=== PATIENT | male | born 1945 | race African-American/Black ===

== ENCOUNTER 2017-03-20 21:38 | Inpatient (IN) | payer OTHER, MEDICARE ==
[~2017-03-20] VITALS: Ht 175.3 cm; Wt 52.6 kg
--- NOTE | 2017-03-20 00:50 | NUR ---
21:50. Pt arrived via transport and at 21:55 placed on Quinonez vent with the following settings of AC-14, Vt-550, PEEP+5, FIO2-40%. Pt trached with Ghada#8 DCT trach, which is in the place and secure. No respiratory distress noted. Airway care done, pt responded to physical stimuli. Resus. bag and back up trach at bedside. Vent and alarms checked and reset.
--- NOTE | 2017-03-20 00:53 | NUR ---
22:51. Pt went for CT scan with RT, RN and X-RAY tech at bedside on vent. 23:03. Pt back to ER 1-B. No distress noted.
--- NOTE | 2017-03-20 21:55 | NUR ---
PT BIB [facility]ANCE FROM [facility] WITH ABNORMAL LABS.PT TRACHED AND ON VENTILATOR.SPONTANEOUS EYE OPENING BUT NOTHING PURPOSEFUL.WILL PULL AWAY FROM PAIN. NO RESP DISTRESS NOTED OR REPORTED UPON ASSESSMENT... MD AT BEDSIDE...
[2017-03-20] MEDS ORDERED: CEFTRIAXONE 1 G in IV DEXTROSE 5% 50 ML IV ONE (22:00)
[2017-03-20] MEDS ORDERED: ACETAMINOPHEN 650 MG SUPP.RECT RC ONE (22:00)
[2017-03-20 22:03] LABS: *OCCULT BLOOD STOOL POSITIVE (NEGATIVE)
[2017-03-20] MEDS ORDERED: CEFTRIAXONE 1 G VIAL ONE (22:21)
[2017-03-20] MEDS ORDERED: ACETAMINOPHEN 325 MG SUPP ONE (22:22)
[2017-03-20] MEDS ORDERED: ALBU2.5V38 IH (22:23)
[2017-03-20] MEDS ORDERED: ALBU2.5V38 NEB (22:23)
[2017-03-20] MEDS ORDERED: EPOE1VIA6 SQ (22:23)
[2017-03-20] MEDS ORDERED: ACET160S GT (22:23)
[2017-03-20] MEDS ORDERED: ASPI81TA31 GT (22:23)
[2017-03-20] MEDS ORDERED: IPRA0.2S6 NEB ×2 (22:23)
[2017-03-20] MEDS ORDERED: BLOO-360 IN (22:23)
[2017-03-20] MEDS ORDERED: HYDR100T27 GT (22:23)
[2017-03-20] MEDS ORDERED: INSU100V10 SQ (22:23)
[2017-03-20] MEDS ORDERED: LABE200T GT (22:23)
[2017-03-20] MEDS ORDERED: ATEN25TA PO (22:23)
[2017-03-20] MEDS ORDERED: HEPA500014 IJ (22:23)
[2017-03-20] MEDS ORDERED: COLL30OI TOP (22:23)
[2017-03-20 22:26] LABS: ABG BASE EXCESS 0.7 mmol/L; ABG PCO2 32.9 mmHg (35.0-45.0); ABG PH 7.481 (7.350-7.450); ABG PO2 147.5 mmHg (75.0-100.0); ABG SITE RIGHT RADIAL; ABG TOTAL HEMOGLOBIN 8.1 G/dL (13.5-18.0); COHb 1.4 % (0.5-1.5); MetHb 0.5 % (0.0-1.5); O2Hb 97.3 % (94.0-97.0); VENT MODE VENT - A/C; VT, ABG 550 mL
[2017-03-20 22:30] LABS: BASOPHILS # (AUTO) 0.1 K/uL (0.0-8.0); BASOPHILS % (AUTO) 0.4 % (0.0-2.0); EOSINOPHILS # (AUTO) 0.8 K/uL (0.0-0.7); EOSINOPHILS % (AUTO) 4.3 % (0.0-7.0); HEMOGLOBIN 7.4 G/DL (14.0-18.0); LYMPHOCYTES # (AUTO) 3.5 K/UL (0.8-4.8); LYMPHOCYTES % (AUTO) 19.3 % (20.5-51.5); MEAN CORPUSCULAR HEMOGLOBIN 25.8 UUG (27.0-31.0); MEAN CORPUSCULAR HGB CONC 32 g/dL (32.0-37.0); MONOCYTES # (AUTO) 1.9 K/UL (0.1-1.30); MONOCYTES % (AUTO) 10.6 % (0.0-11.0); NEUTROPHILS # (AUTO) 11.8 K/UL (1.8-8.9); NEUTROPHILS % (AUTO) 65.4 % (38.5-71.5); RED BLOOD CELL COUNT(AUTO) 2.87 MIL/UL (4.7-6.1); WHITE BLOOD COUNT (AUTO) 18.1 K/UL (4.0-11.2)
[2017-03-20 22:31] LABS: POTASSIUM 4.9 mmol/L (3.5-5.1)
[2017-03-20 22:37] LABS: CREATININE 2.7 mg/dL (0.6-1.3)
[2017-03-20 22:44] LABS: BILIRUBIN,DIRECT 0.1 mg/dL (0.0-0.2); BILIRUBIN,TOTAL 0.3 mg/dL (0.2-1.0); TOTAL PROTEIN, SERUM 7.8 g/dL (6.4-8.2)
--- NOTE | 2017-03-20 22:44 | NUR ---
PER ERMD, OK TO INSERT IV IN FOOT, PT IS DIABETIC...
[2017-03-20 22:53] LABS: HEMATOCRIT 23.2 % (40-50); PLATELET COUNT (AUTO) 1004 K/UL (150-450)
[2017-03-20 22:57] LABS: *BILIRUBIN,URIN NEGATIVE (NEGATIVE); *BLOOD, URINE NEGATIVE (NEGATIVE); *COLOR,URINE YELLOW (YELLOW); *KETONES,URINE NEGATIVE (NEGATIVE); *UROBILINOGEN,URINE 0.2 E.U./dl (NORMAL); LEUKOCYTE ESTERASE ,URINE NEGATIVE (NEGATIVE); NITRITE, URINE NEGATIVE (NEGATIVE); UGLUCOSE NEGATIVE (NEGATIVE)
[2017-03-20 23:04] LABS: *CLARITY,URINE HAZY (CLEAR); *PROTEIN,URINE 3+ (NEGATIVE)
[2017-03-20 23:05] LABS: BACTERIA,URINE NONE SEEN /HPF (NONE SEEN); RBC,URINE 0-3 /HPF (0-3); SQUAMOUS EPITHELIAL CELL,UR MODERATE /HPF (NONE SEEN); WBC,URINE 0-3 /HPF (0-3)
--- NOTE | 2017-03-20 23:10 | NUR ---
Due to ABG result Dr Rowe lower RR to 12bpm.
[2017-03-20 23:40] LABS: BAND % (MANUAL) 4 % (0-10); EOSINOPHILS % (MANUAL) 4 % (0-8); LYMPHOCYTES % (MANUAL) 20 % (20-40); MONOCYTES % (MANUAL) 10 % (2-10); NEUTROPHILS % (MANUAL) 62 % (42-75)
--- NOTE | 2017-03-20 23:42 | NUR ---
Call placed to [facility] Nephrolog, Dr. Proctor will be paged.
[2017-03-21] VITALS (26 sets, daily range): BP systolic 91–151; BP diastolic 55–84
--- NOTE | 2017-03-21 01:15 | NUR ---
Pt transferred to CCU-[address] Rowe. No distress noted.
--- NOTE | 2017-03-21 01:16 | NUR ---
Pt. admitted to [facility] , under care of Dr. GAFFNEY, Belongs List completed, transferred via gurney with ERMD and RT at side...
--- NOTE | 2017-03-21 01:30 | NUR ---
Admitted to CCU-5 per jovanna, [facility] status under services of Dr. Proctor. Dx: Liver Mass, SIRS/possible sepsis. In no apparent acute distress. Trach Shiley DCT 8 intact, placed on vent. with prescribed settings. Copious oral and large trach secretions noted with suctioning. Routine CCU/[facility] admission care rendered. Please see admission assessment and profile. HOB up per VAP protocol. Placed on contact isolation pending result of CDiff stool sent in ER.
[2017-03-21] MEDS ORDERED: NORMAL SALINE FLUSH 10 ML DISP.SYRIN IV PRN (03:15)
[2017-03-21 05:20] LABS: BASOPHILS # (AUTO) 0.1 K/uL (0.0-8.0); BASOPHILS % (AUTO) 0.3 % (0.0-2.0); EOSINOPHILS # (AUTO) 0.7 K/uL (0.0-0.7); LYMPHOCYTES # (AUTO) 3.3 K/UL (0.8-4.8); LYMPHOCYTES % (AUTO) 19.6 % (20.5-51.5); MEAN CORPUSCULAR HEMOGLOBIN 25.7 UUG (27.0-31.0); MEAN CORPUSCULAR HGB CONC 32 g/dL (32.0-37.0); MEAN CORPUSCULAR VOLUME 81.6 FL (82.0-92.0); MONOCYTES # (AUTO) 2.1 K/UL (0.1-1.30); MONOCYTES % (AUTO) 12.5 % (0.0-11.0); NEUTROPHILS # (AUTO) 10.8 K/UL (1.8-8.9); NEUTROPHILS % (AUTO) 63.6 % (38.5-71.5); PLATELET COUNT (AUTO) 971 K/UL (150-450); RED BLOOD CELL COUNT(AUTO) 2.67 MIL/UL (4.7-6.1)
[2017-03-21 05:43] LABS: HEMATOCRIT 21.8 % (40-50); HEMOGLOBIN 6.9 G/DL (14.0-18.0)
[2017-03-21 05:45] LABS: PHOSPHOROUS 4.4 mg/dL (2.5-4.9); POTASSIUM 4.7 mmol/L (3.5-5.1)
[2017-03-21] MEDS ORDERED: BLOOD SUGAR DIAGNOSTIC 1 EACH STRIP VI SCH ×3 (06:00→12:00)
[2017-03-21] MEDS: IPRATROPIUM BROMIDE 0.5 MG/2.5 ML NEBU NEB SCH ×4 (06:00→19:11)
[2017-03-21] MEDS ORDERED: ALBUTEROL SULFATE 2.5 MG/3 ML NEBU NEB SCH (06:00)
--- NOTE | 2017-03-21 06:00 | NUR ---
Needed frequent suctioning, more orally. Tongue large, protruding with tendency to bleed. Pt incontinent of liquid stools, kept clean/comfortable. Turned/positioned q 2hr and PRN. Await first step mattress. Please see CCU flowsheet for trends and clinical data.
[2017-03-21 06:06] LABS: CREATININE 3.2 mg/dL (0.6-1.3)
[2017-03-21] MEDS: NORMAL SALINE FLUSH 10 ML DISP.SYRIN IV SCH ×2 (06:35→14:40)
[2017-03-21] MEDS: METRONIDAZOLE 500 MG/NS 100ML 500 MG in PREMIXED 1 EACH IV SCH ×2 (06:44→14:39)
--- NOTE | 2017-03-21 07:30 | NUR ---
RECIEVED PT LYING IN BED, EYES OPENS SPONTANEOUSLY BUT DOES NOT FOLLOW COMMANDS. CHRONIS TRACH8, VENT SETTING IS AC12, VT550, PEEP5, DWE614%. LOT OF ORAL SECRETIONS AND PLACED ON ORAL AIRWAY TO PROTECT HIS TONGUE FROM HIS BITING. AFEBRILE.
--- NOTE | 2017-03-21 08:30 | NUR ---
SEEN AND EXAMINED BY DR GLASS WITH NEW ORDERS.
[2017-03-21] MEDS ORDERED: IPRATROPIUM BROMIDE 0.5 MG/2.5 ML NEBU NEB PRN (08:45)
[2017-03-21] MEDS: INSULIN DETEMIR 300 UNIT/3 ML CARTRIDGE SQ SCH ×2 (08:45→18:00)
[2017-03-21] MEDS ORDERED: ALBUTEROL SULFATE 2.5 MG/3 ML NEBU NEB PRN (08:45)
[2017-03-21] MEDS ORDERED: COLLAGENASE OINT 30 GM TUBE TOP PRN (08:45)
[2017-03-21] MEDS: ALBUTEROL SULFATE 2.5 MG/3 ML NEBU NEB SCH ×3 (08:50→19:12)
[2017-03-21] MEDS ORDERED: ASPIRIN 81 MG TAB.CHEW GT SCH (09:00)
[2017-03-21] MEDS: ATENOLOL 25 MG TABLET PO SCH ×2 (09:52→23:59)
[2017-03-21] MEDS: hydrALAZINE HCL 50 MG TABLET GT SCH ×2 (09:53→14:39)
[2017-03-21] MEDS: LABETALOL HCL 200 MG TABLET GT SCH (10:00)
--- NOTE | 2017-03-21 10:00 | NUR ---
PT HAS DIARRHEA WITH BLACK TARRY STOOLS LARGE AMOUNT. FLEXISEAL INSERTED ORDERED.
--- NOTE | 2017-03-21 11:00 | NUR ---
GT INTACT. PT NPO.
[2017-03-21 12:10] LABS: BAND % (MANUAL) 3 % (0-10); EOSINOPHILS % (MANUAL) 4 % (0-8); LYMPHOCYTES % (MANUAL) 19 % (20-40); METAMYELOCYTES % 1 % (0-1); MONOCYTES % (MANUAL) 11 % (2-10); NEUTROPHILS % (MANUAL) 62 % (42-75)
[2017-03-21] MEDS ORDERED: DEXTROSE 50% 50 ML DISP.SYRIN IV PRN (12:30)
[2017-03-21] MEDS ORDERED: THERAHONEY GEL 1.5 OZ TUBE TOP PRN (12:30)
[2017-03-21] MEDS: BLOOD SUGAR DIAGNOSTIC 1 EACH STRIP VI SCH ×2 (12:59→18:17)
[2017-03-21] MEDS: PANTOPRAZOLE SODIUM 40 MG VIAL IV SCH ×2 (13:00→23:58)
[2017-03-21] MEDS: INSULIN REGULAR, HUMAN 300 UNIT/3 ML VIAL SQ PRN (13:06)
[2017-03-21] MEDS ORDERED: ALBUTEROL SULFATE 2.5 MG/3 ML NEBU IH SCH (13:30)
[2017-03-21] MEDS ORDERED: IPRATROPIUM BROMIDE 0.5 MG/2.5 ML NEBU NEB SCH (13:30)
--- NOTE | 2017-03-21 14:00 | NUR ---
FIRST UNIT OF PRBC STARTED WITHOUT ANY REACTION ORDERED FOR LOW H&H VIA THE RIGHT LEG G20. INFUSING WELL. AFEBRILE.
--- NOTE | 2017-03-21 14:43 | NUR ---
PATIENT RECEIVED ON AC 12, VT 550, +5, 40% FIO2. NO SIGNS OR SYMPTOMS OF RESPIRATORY DISTRESS NOTED AT THIS TIME. HE IS TRACHED WITH A SHILEY 8 DCT, MEASUREMENT AND SENSING TECHNICIAN USED FOR CUFF ASSESSMENT. OLD WOUND ON TONGUE NOTED. BITE BLOCK IN PLACE TO PREVENT FURTHER INJURY. SUCTIONED SMALL AMOUNTS OF PALE YELLOW THICK SECRETIONS. NO SOB. TRACH AND ORAL CARE RENDERED WITHOUT COMPLICATIONS. INLINE TREATMENTS ADMINISTERED VIA HHN, NO ADVERSE REACTIONS NOTED. ALARMS ARE ON AND AUDIBLE. AMBU BAG AND SPARE TRACH ARE AT BEDSIDE.
--- NOTE | 2017-03-21 17:30 | NUR ---
2ND UNIT OF PRBC IS INFUSING. VSS.
--- NOTE | 2017-03-21 18:00 | NUR ---
PM CARE RENDERED. CONDITION IS UNCHANGED.
--- NOTE | 2017-03-21 19:10 | NUR ---
Received report from GEO Ellis
--- NOTE | 2017-03-21 19:20 | NUR ---
Patient awake, non responsive, do not follow command. Not in distress. No s/s of pain/discomforts noted. HOB, on mechanical vent tolerating vent setting well, saturating 100%. GT intact and patent, clamped. Flexi-seal intact/patent with black stool in small amount sticked on the tubing. Irrigated with water for patency. Turned and repositioned for comfort. Continue care as planned.
--- NOTE | 2017-03-21 19:59 | NUR ---
Blood transfusion completed without s/s of adverse reaction noted. VS taken and recorded as follows: 130/67, 70,14, 98.7
--- NOTE | 2017-03-21 20:00 | NUR ---
Patient moved to CCU 1 for HD accomodation.
--- NOTE | 2017-03-21 23:00 | NUR ---
Ravinder called Dr. Correa exchange [phone] Re: CT abdomen with contrast. Anticipating MD to call back
--- NOTE | 2017-03-21 23:06 | NUR ---
Dr Correa called back. Ravinder informed that HD is needed per HD nurse after CT abdomen with contrast is done. MD agreed and procedure will be reschedule for tomorrow. HD nurse aware. Will notify PMD in AM for HD order.
--- NOTE | 2017-03-21 23:35 | NUR ---
HD completed with no output reported. Will do HD again in AM after CT abdomen with contrast as ordered.
[2017-03-22] VITALS (23 sets, daily range): BP systolic 98–158; BP diastolic 58–82
[2017-03-22] MEDS: hydrALAZINE HCL 50 MG TABLET GT SCH ×4 (00:01→21:45)
[2017-03-22] MEDS: NORMAL SALINE FLUSH 10 ML DISP.SYRIN IV SCH ×4 (00:02→22:31)
[2017-03-22] MEDS: CEFTRIAXONE 1 G in IV DEXTROSE 5% 50 ML IV SCH ×2 (00:02→21:45)
[2017-03-22] MEDS: LABETALOL HCL 200 MG TABLET GT SCH ×3 (00:08→20:28)
[2017-03-22] MEDS: BLOOD SUGAR DIAGNOSTIC 1 EACH STRIP VI SCH ×5 (00:21→23:47)
[2017-03-22] MEDS: INSULIN REGULAR, HUMAN 300 UNIT/3 ML VIAL SQ PRN ×4 (00:22→23:54)
[2017-03-22] MEDS: IPRATROPIUM BROMIDE 0.5 MG/2.5 ML NEBU NEB SCH ×4 (00:53→19:02)
[2017-03-22] MEDS: ALBUTEROL SULFATE 2.5 MG/3 ML NEBU NEB SCH ×4 (00:53→19:02)
[2017-03-22] MEDS: METRONIDAZOLE 500 MG/NS 100ML 500 MG in PREMIXED 1 EACH IV SCH ×4 (00:57→22:30)
--- NOTE | 2017-03-22 00:57 | NUR ---
PT ON CONT POWELL VENT WITH SHILEY # [address] AND SECURED, WITH SAME CURRENT VENT SETTINGS, A/C 12, VT 550ML, PEEP 5, 40% , PT DOES ASSIST AT TIMES, SUCTION ALOT OF SECRETIONS FROM ORAL CAVITY, ORAL AIRWAY IN PLACE BUT DOES FALL OUT AT TIMES, SUCTION MOUTH WITH ROSA ISELA DE LA ROSA, WHITISH AND PALE YELL TINGE FROM TRACH, WITH GOOD COUGH EFFORT, CHECK CUFF, CHANGE HME, NEB INLINE WITH Q6 HOURS WITH ALBUTEROL/ ATROVENT ROSA ISELA JACOBS, ALL ALARMS OK; AMBU BAG AT BEDSIDE, PT DOES NOT RESPOND TO VERBAL COMMANDS ; NO VENT CHANGES MADE AT THIS TIME.Shira GRUBBS RCP Addendum: 03/22/17 at 0101 by MAN GRUBBS RT Amended: Links added.
--- NOTE | 2017-03-22 04:15 | NUR ---
Complete bed bath given. Trach, GT and wound care done. Pt tolerated procedure well. No complaint presented.
[2017-03-22 04:57] LABS: BASOPHILS % (AUTO) 0.2 % (0.0-2.0); EOSINOPHILS # (AUTO) 0.7 K/uL (0.0-0.7); EOSINOPHILS % (AUTO) 4.5 % (0.0-7.0); HEMATOCRIT 28.6 % (40-50); HEMOGLOBIN 9.2 G/DL (14.0-18.0); LYMPHOCYTES # (AUTO) 2.4 K/UL (0.8-4.8); LYMPHOCYTES % (AUTO) 16.4 % (20.5-51.5); MEAN CORPUSCULAR HEMOGLOBIN 26.5 UUG (27.0-31.0); MEAN CORPUSCULAR HGB CONC 32 g/dL (32.0-37.0); MEAN CORPUSCULAR VOLUME 82.1 FL (82.0-92.0); MONOCYTES # (AUTO) 1.9 K/UL (0.1-1.30); NEUTROPHILS # (AUTO) 9.9 K/UL (1.8-8.9); NEUTROPHILS % (AUTO) 65.9 % (38.5-71.5); PLATELET COUNT (AUTO) 937 K/UL (150-450); RED BLOOD CELL COUNT(AUTO) 3.48 MIL/UL (4.7-6.1); WHITE BLOOD COUNT (AUTO) 14.9 K/UL (4.0-11.2)
[2017-03-22 05:09] LABS: BILIRUBIN,TOTAL 0.3 mg/dL (0.2-1.0); MAGNESIUM 2.1 mg/dL (1.8-2.4); PHOSPHOROUS 4.6 mg/dL (2.5-4.9); POTASSIUM 4.2 mmol/L (3.5-5.1); TOTAL PROTEIN, SERUM 7.4 g/dL (6.4-8.2)
[2017-03-22 05:28] LABS: CREATININE 3.2 mg/dL (0.6-1.3)
--- NOTE | 2017-03-22 07:30 | NUR ---
RECIEVED PT LYING IN BED, HOB UP 35DEGREE. NO APPARENT DISTRESS, NON VERBAL, CHRONIC TRACHE SHILEY8 INTACT. VENT SETTING AC12,VT550,PEEP5,FIO2-40%. LARGE AMOUNT OF ORAL SECRETIONS AND ORAL AIRWAY IS PRESENT TO PREVENT HIM FROM BITING HIS TONGUE.
--- NOTE | 2017-03-22 07:55 | NUR ---
PT RECEIVED ON CMV WITH TRACH SECURED AND INTACT. AIRWAY PATENT. PT COMFORTABLE TOLERATING CURRENT VENT SETTINGS FINE WITH NO DISTRESS. VENT ALARM SET AND AUDIBLE.VENT PLUGGED INTO RED OUTLET.
[2017-03-22] MEDS: INSULIN DETEMIR 300 UNIT/3 ML CARTRIDGE SQ SCH (08:00)
[2017-03-22] MEDS: PANTOPRAZOLE SODIUM 40 MG VIAL IV SCH ×2 (08:59→20:28)
[2017-03-22] MEDS: ATENOLOL 25 MG TABLET PO SCH ×2 (09:00→20:28)
--- NOTE | 2017-03-22 11:00 | NUR ---
SEEN AND EXAMINED BY DR GLASS WITH NEW ORDERS.
--- NOTE | 2017-03-22 11:00 | NUR ---
MIDLINE IV INSERTON DONE AT THE BEDSIDE BY SAIDA GUARDADO G18 ON THE FRANKLIN PATENT AND INTACT. RONNIE
[2017-03-22] MEDS: EPOETIN ALFA 10,000 UNITS/ML VIAL SQ PRN (11:22)
--- NOTE | 2017-03-22 13:00 | NUR ---
PT TO CT VIA BED FOR CT ABDOMEN WITH CONTRAST. CONSENTED BY DR GLASS FOR INCAPACITATED PT WITHOUT ANY RELATIVES.
[2017-03-22] MEDS ORDERED: IV NORMAL SALINE 250 ML BAG ONE (13:18)
[2017-03-22] MEDS ORDERED: IOHEXOL 300MG/ML 100 ML INFUS..BTL ONE (13:18)
--- NOTE | 2017-03-22 14:30 | NUR ---
HEMODIALYSIS AT THE BEDSIDE ORDERED. TOLERATED WELL. VSS STABLE.
--- NOTE | 2017-03-22 18:00 | NUR ---
RECTAL TUBE WAS OUT AND DID NOT REINSERT IT BACK.
--- NOTE | 2017-03-22 18:00 | NUR ---
PM CARE AND TRACH CARE DONE. CONDITION IS UNCHANGED.
--- NOTE | 2017-03-22 19:30 | NUR ---
Report received. Patient with trache to vent, settings as follows: AC=12, FIO2=40%, LP=960 ml and PEEP=5. Opens eyes spontaneously. Doesn't follow any commands. Assessment completed. Addendum: 03/22/17 at 2332 by MARTI ALTAMIRANO RN Amended: Links added. Addendum: 03/22/17 at 2332 by MARTI ALTAMIRANO RN Amended: Links added.
--- NOTE | 2017-03-22 21:00 | NUR ---
Seen by Usman Banks new orders. Addendum: 03/22/17 at 2342 by MARTI ALTAMIRANO RN Amended: Links added. Addendum: 03/23/17 at 0001 by MARTI ALTAMIRANO RN Amended: Links added.
--- NOTE | 2017-03-22 21:04 | NUR ---
PATIENT RECEIVED TRACHED ON CMV WITH THE FOLLOWING SETTINGS THAT ARE CHARTED ON THE MECHANICAL VENT NOTES. BITE BLOCK IS IN PLACE. SX'D SMALL AMOUNTS OF THICK YELLOW SECRETIONS. HME CHANGED. INLINE HHN TX ADMINISTERED PER MD ORDERS AND TOLERATED WELL WITH NO ADVERSE REACTIONS NOTED. ALARMS ARE ON AND AUDIBLE. BACK UP TRACH AND BMV IS BY BEDSIDE. VENT IS PLUGGED IN RED OUTLET. VENT ALARMS ARE ON AND AUDIBLE. PT IS TOLERATING CURRENT VENT SETTINGS WELL WITH NO SOB NOTED AT THIS TIME. WILL CONTINUE TO MONITOR.
[2017-03-23] VITALS (23 sets, daily range): BP systolic 107–156; BP diastolic 58–90
--- NOTE | 2017-03-23 00:30 | NUR ---
Suctioned via trache; with thick pale yellowish secretions. Specimen sent to lab for C/S. Addendum: 03/23/17 at 0654 by MARTI ALTAMIRANO RN Amended: Links added.
[2017-03-23] MEDS: ALBUTEROL SULFATE 2.5 MG/3 ML NEBU NEB SCH ×4 (01:03→19:15)
[2017-03-23] MEDS: IPRATROPIUM BROMIDE 0.5 MG/2.5 ML NEBU NEB SCH ×4 (01:04→19:15)
[2017-03-23 05:21] LABS: BILIRUBIN,TOTAL 0.5 mg/dL (0.2-1.0); MAGNESIUM 1.9 mg/dL (1.8-2.4); PHOSPHOROUS 5.3 mg/dL (2.5-4.9); POTASSIUM 4.2 mmol/L (3.5-5.1); TOTAL PROTEIN, SERUM 6.9 g/dL (6.4-8.2)
[2017-03-23 05:25] LABS: BASOPHILS % (AUTO) 0.1 % (0.0-2.0); EOSINOPHILS # (AUTO) 0.6 K/uL (0.0-0.7); EOSINOPHILS % (AUTO) 3.5 % (0.0-7.0); HEMATOCRIT 26.7 % (40-50); HEMOGLOBIN 8.9 G/DL (14.0-18.0); LYMPHOCYTES # (AUTO) 2.6 K/UL (0.8-4.8); LYMPHOCYTES % (AUTO) 15.9 % (20.5-51.5); MEAN CORPUSCULAR HEMOGLOBIN 27.3 UUG (27.0-31.0); MEAN CORPUSCULAR HGB CONC 33 g/dL (32.0-37.0); MEAN CORPUSCULAR VOLUME 81.7 FL (82.0-92.0); MONOCYTES # (AUTO) 2.1 K/UL (0.1-1.30); MONOCYTES % (AUTO) 13.3 % (0.0-11.0); NEUTROPHILS # (AUTO) 10.8 K/UL (1.8-8.9); NEUTROPHILS % (AUTO) 67.2 % (38.5-71.5); PLATELET COUNT (AUTO) 918 K/UL (150-450); RED BLOOD CELL COUNT(AUTO) 3.27 MIL/UL (4.7-6.1); WHITE BLOOD COUNT (AUTO) 16.1 K/UL (4.0-11.2)
[2017-03-23 05:30] LABS: CREATININE 3.7 mg/dL (0.6-1.3)
[2017-03-23] MEDS: BLOOD SUGAR DIAGNOSTIC 1 EACH STRIP VI SCH ×4 (05:32→23:20)
[2017-03-23] MEDS: METRONIDAZOLE 500 MG/NS 100ML 500 MG in PREMIXED 1 EACH IV SCH ×3 (05:33→22:06)
[2017-03-23] MEDS: hydrALAZINE HCL 50 MG TABLET GT SCH ×3 (05:33→22:06)
[2017-03-23] MEDS: NORMAL SALINE FLUSH 10 ML DISP.SYRIN IV SCH ×3 (05:33→22:06)
[2017-03-23 05:40] LABS: BAND % (MANUAL) 2 % (0-10); EOSINOPHILS % (MANUAL) 3 % (0-8); LYMPHOCYTES % (MANUAL) 19 % (20-40); MONOCYTES % (MANUAL) 22 % (2-10); NEUTROPHILS % (MANUAL) 54 % (42-75)
--- NOTE | 2017-03-23 06:00 | NUR ---
Requires frequent suctioning from trache, mouth and nasopharangeal. With good cough reflex. VS stable.
[2017-03-23] MEDS: LABETALOL HCL 200 MG TABLET GT SCH ×2 (08:06→21:01)
[2017-03-23] MEDS: PANTOPRAZOLE SODIUM 40 MG VIAL IV SCH ×2 (08:06→21:00)
[2017-03-23] MEDS: ATENOLOL 25 MG TABLET PO SCH ×2 (08:06→21:00)
[2017-03-23] MEDS: Z GUARD REMEDY PASTE 57 GM TUBE TOP SCH ×2 (08:07→21:01)
--- NOTE | 2017-03-23 10:18 | NUR ---
Dr. High here to see pt. Full report given. New orders received.
[2017-03-23] MEDS: INSULIN REGULAR, HUMAN 300 UNIT/3 ML VIAL SQ PRN ×3 (11:49→23:21)
--- NOTE | 2017-03-23 12:00 | NUR ---
Dr. Lentz here to see pt. Full report given. New orders received.
[2017-03-23] MEDS: IV D5/ 0.9% NACL 1,000 ML IV PRN (12:08)
[2017-03-23] MEDS ORDERED: IOHEXOL 300MG/ML 100 ML INFUS..BTL ONE (14:22)
[2017-03-23] MEDS ORDERED: IV NORMAL SALINE 250 ML IV ONE (14:22)
--- NOTE | 2017-03-23 19:18 | NUR ---
Pt rec'd on Quinonez settings AC 12, VT 550, PEEP +5 and FIO2-40%. No resp. distress noted. Shiley 8 is patent and secure; B/U Shiley 8 and BVM at bedside. Pt to be monitored throughout the shift, PRN SX and adm'd resp neb txs per MD orders. Quinonez alarm parameters have been checked and remain audible at this time,.
--- NOTE | 2017-03-23 19:30 | NUR ---
Report received. Patient with trache to mechanical ventilator with settings: AC=12, FIO2=40%, IP=710hm and PEEP=5. Sat above 96%. Opens eyes spontaneously. Grimaces to pain but doesn't follow any commands. Addendum: 03/23/17 at 2304 by MARTI ALTAMIRANO RN Amended: Links added. Addendum: 03/23/17 at 2306 by MARTI ALTAMIRANO RN Amended: Links added.
[2017-03-23] MEDS: CEFTRIAXONE 1 G in IV DEXTROSE 5% 50 ML IV SCH (21:48)
[2017-03-24] VITALS (24 sets, daily range): BP systolic 110–156; BP diastolic 59–86
[2017-03-24] MEDS: IPRATROPIUM BROMIDE 0.5 MG/2.5 ML NEBU NEB SCH ×4 (00:37→19:55)
[2017-03-24] MEDS: ALBUTEROL SULFATE 2.5 MG/3 ML NEBU NEB SCH ×4 (00:37→19:55)
[2017-03-24] MEDS: IV D5/ 0.9% NACL 1,000 ML IV PRN ×2 (02:11→15:55)
[2017-03-24] MEDS: Z GUARD REMEDY PASTE 57 GM TUBE TOP PRN ×2 (02:14→05:15)
--- NOTE | 2017-03-24 05:05 | NUR ---
Pt remains on Quinonez with no changes made to the ventilator settings. No resp. distress noted throughout the shift. Shiley 8 remains patent and secure; B/U Shiley 8 and BVM at bedside. Pt routinely sx'd and appeared to tolerate resp neb txs and vent settings well. Quinonez alarm parameters have been checked and remain audible.
[2017-03-24 05:13] LABS: MAGNESIUM 2.1 mg/dL (1.8-2.4); PHOSPHOROUS 6.6 mg/dL (2.5-4.9); POTASSIUM 3.9 mmol/L (3.5-5.1)
[2017-03-24 05:15] LABS: BASOPHILS % (AUTO) 0.3 % (0.0-2.0); EOSINOPHILS # (AUTO) 0.5 K/uL (0.0-0.7); EOSINOPHILS % (AUTO) 3.3 % (0.0-7.0); HEMATOCRIT 26.3 % (40-50); HEMOGLOBIN 8.8 G/DL (14.0-18.0); LYMPHOCYTES # (AUTO) 2.3 K/UL (0.8-4.8); LYMPHOCYTES % (AUTO) 14.2 % (20.5-51.5); MEAN CORPUSCULAR HEMOGLOBIN 27.7 UUG (27.0-31.0); MEAN CORPUSCULAR HGB CONC 34 g/dL (32.0-37.0); MEAN CORPUSCULAR VOLUME 82.8 FL (82.0-92.0); MONOCYTES # (AUTO) 2.1 K/UL (0.1-1.30); MONOCYTES % (AUTO) 12.9 % (0.0-11.0); NEUTROPHILS # (AUTO) 11.5 K/UL (1.8-8.9); NEUTROPHILS % (AUTO) 69.3 % (38.5-71.5); PLATELET COUNT (AUTO) 914 K/UL (150-450); RED BLOOD CELL COUNT(AUTO) 3.17 MIL/UL (4.7-6.1); WHITE BLOOD COUNT (AUTO) 16.4 K/UL (4.0-11.2)
[2017-03-24] MEDS: METRONIDAZOLE 500 MG/NS 100ML 500 MG in PREMIXED 1 EACH IV SCH ×3 (05:15→21:51)
[2017-03-24] MEDS: NORMAL SALINE FLUSH 10 ML DISP.SYRIN IV SCH ×3 (05:15→21:51)
[2017-03-24] MEDS: BLOOD SUGAR DIAGNOSTIC 1 EACH STRIP VI SCH ×3 (05:16→17:28)
[2017-03-24 05:22] LABS: CREATININE 4.9 mg/dL (0.6-1.3)
[2017-03-24 05:38] LABS: BAND % (MANUAL) 2 % (0-10); EOSINOPHILS % (MANUAL) 1 % (0-8); LYMPHOCYTES % (MANUAL) 16 % (20-40); MONOCYTES % (MANUAL) 12 % (2-10); NEUTROPHILS % (MANUAL) 69 % (42-75)
[2017-03-24] MEDS: hydrALAZINE HCL 50 MG TABLET GT SCH ×3 (05:39→21:51)
[2017-03-24] MEDS: INSULIN REGULAR, HUMAN 300 UNIT/3 ML VIAL SQ PRN ×3 (05:41→17:34)
--- NOTE | 2017-03-24 06:00 | NUR ---
Condition unchanged. VS stable. Addendum: 03/24/17 at 0722 by MARTI ALTAMIRANO RN Amended: Links added.
--- NOTE | 2017-03-24 07:45 | NUR ---
RECEIVED PT ON CONTINUOUS VENT AC12 VT 550 PEEP 5 FIO2 40%. TRACH IN PLACE ABD SECURED. IN LINE TX GIVEN ORDERED. SUCTION LAVAGE PRN. ORAL CARE DONE. BACK UP TRACH AND AMBU BAG AT BEDSIDE. VENT CHECKED, ALARMS WORKING WELL AND AUDIBLE. NO DISTRESS NOTED AT THIS TIME. WILL CONTINUE TO MONITOR.
--- NOTE | 2017-03-24 08:00 | NUR ---
Dr. Lentz here to see pt. Full report given. New orders received.
--- NOTE | 2017-03-24 08:00 | NUR ---
Pt received awake on Shiley #8 continuous vent settings as follows: AC-12, TV-550ml, 40% FiO2, PEEP-5. hotel registration clerk and ventilation alarms working properly wnl. Fernandez catheter intact and draining properly. IVF infusing as ordered. DVT pumps on bilaterally. Pt hemodynamically stable and nad noted.
[2017-03-24] MEDS: LABETALOL HCL 200 MG TABLET GT SCH ×2 (08:05→20:30)
[2017-03-24] MEDS: ATENOLOL 25 MG TABLET PO SCH (08:06)
[2017-03-24] MEDS: PANTOPRAZOLE SODIUM 40 MG VIAL IV SCH ×2 (08:06→20:30)
[2017-03-24] MEDS: Z GUARD REMEDY PASTE 57 GM TUBE TOP SCH ×2 (08:06→20:30)
--- NOTE | 2017-03-24 09:00 | NUR ---
AM PO blood pressure meds held in light of dialysis scheduled later for this morning.
--- NOTE | 2017-03-24 09:10 | NUR ---
Spoke with Dr. Correa (GI) on the telephone. Full report given. MD aware that CT machine is down and unable to do CT procedure today for the pt. CT procedure to be postponed until machine is fixed. No new orders received.
[2017-03-24 09:19] LABS: ABG BASE EXCESS -4.4 mmol/L; ABG HCO3 19.4 mmol/L; ABG PCO2 30.7 mmHg (35.0-45.0); ABG PH 7.419 (7.350-7.450); ABG PO2 155.6 mmHg (75.0-100.0); ABG SITE LEFT RADIAL; ABG TOTAL HEMOGLOBIN 8.3 G/dL (13.5-18.0); COHb 2.1 % (0.5-1.5); MetHb 0.7 % (0.0-1.5); O2Hb 96.7 % (94.0-97.0); VENT MODE VENT - A/C; VT, ABG 550 mL
--- NOTE | 2017-03-24 11:10 | NUR ---
Telephone consent signed by Cyn (sister): . alert and oriented during our telephone conversation and is aware of the procedures to be done.
--- NOTE | 2017-03-24 11:36 | NUR ---
Dr. Jenkins (Yarn Weight And Strength Tester) here to see pt. Full report given. New orders received.
--- NOTE | 2017-03-24 12:28 | NUR ---
US tech here to see pt for 2D Echocardiogram at the bedside.
--- NOTE | 2017-03-24 13:08 | NUR ---
track and field coach here to see pt at the bedside for dialysis treatment.
--- NOTE | 2017-03-24 13:45 | NUR ---
WOUND CARE CONSULT: PT PRESENTS WITH TONGUE WOUND, PRESENT ON ADMISSION WELL UNSTAGEABLE ULCER TO SACRUM, ALSO PRESENT ON ADMISSION. UNABLE TO TURN PT FOR FULL SKIN ASSESSMENT DUE TO PT ON DIALYSIS AT THIS TIME. DEFER TO MD FOR TONGUE. PT HAS BITE GUARD IN MOUTH. RECOMMENDATIONS MADE FOR SACRAL ULCER AND DISCUSSED WITH NURSING STAFF. PT ON FIRST STEP MATTRESS. ALL SKIN PROTECTION MEASURES IN PLACE. MD IN AGREEMENT WITH PLAN OF CARE. WILL SEE PT PT CONDITION PERMITS. Addendum: 03/24/17 at 1351 by SHIRLEY LANDON RN Amended: Links added. Addendum: 03/24/17 at 1358 by SHIRLEY LANDON RN RECOMMEND SURGICAL CONSULT FOR SACRAL ULCER.
--- NOTE | 2017-03-24 15:00 | NUR ---
Hemodialysis completed. 1L of hemodialysis fluid removed. Pt stable and nad noted upon completion of dialysis treatment.
[2017-03-24] MEDS: ACETAMINOPHEN 650 MG/20.3 ML LIQUID UDC GT PRN (17:21)
--- NOTE | 2017-03-24 18:47 | NUR ---
End of shift: Pt resting and dozing off in bed with fall precautions and safety measures maintained. Pt on Shiley #8 with continuous ventilation settings as follows: AC-12, TV-550ml, 40% FiO2, and PEEP-5. classroom monitor and ventilation alarms working properly wnl. IVF infusing as ordered. Fernandez catheter intact and draining properly. DVT pumps on bilaterally. Pt stable and nad noted.
--- NOTE | 2017-03-24 19:30 | NUR ---
Received patient with eyes open, doesn't track and follow any commands. With trache Shiley# 8 to mechanical ventilator with same settings. NAD noted. Turned and repositioned. HOB elevated above 30 degrees at all times. Addendum: 03/25/17 at 0129 by MARTI ALTAMIRANO RN Amended: Links added.
--- NOTE | 2017-03-24 19:55 | NUR ---
Pt received on Quinonez vent with the following settings of AC 12, VT 550, Peep +5, FiO2 40%. Pt appears to be tolerating vent settings well. No signs of respiratory distress noted at this time. Pt is trached with a Shiley 8 trach which is secure and patent. Bite block in place. Ambu-bag and back-up trach at bedside. Inline tx given per md orders. Suctioned pt with moderate amount of thick pale yellowish secretions. Vent alarms functioning and audible. Will continue to monitor pt throughout shift.
[2017-03-24] MEDS: CEFEPIME HCL 1 G in IV DEXTROSE 5% 50 ML IV SCH (20:57)
[2017-03-24] MEDS ORDERED: CEFEPIME HCL 2 G in IV DEXTROSE 5% 100 ML IV SCH (22:00)
[2017-03-25] VITALS (26 sets, daily range): BP systolic 109–167; BP diastolic 57–84
[2017-03-25] MEDS: BLOOD SUGAR DIAGNOSTIC 1 EACH STRIP VI SCH ×4 (00:11→18:25)
[2017-03-25] MEDS: INSULIN REGULAR, HUMAN 300 UNIT/3 ML VIAL SQ PRN ×3 (00:12→12:47)
[2017-03-25] MEDS: ALBUTEROL SULFATE 2.5 MG/3 ML NEBU NEB SCH ×4 (01:12→19:53)
[2017-03-25] MEDS: IPRATROPIUM BROMIDE 0.5 MG/2.5 ML NEBU NEB SCH ×4 (01:12→19:53)
--- NOTE | 2017-03-25 01:30 | NUR ---
With large amounts of secretions from mouth and R nares. Requires frequent suctioning. Addendum: 03/25/17 at 0131 by MARTI ALTAMIRANO RN Amended: Links added.
[2017-03-25 05:30] LABS: BASOPHILS # (AUTO) 0.5 K/uL (0.0-8.0); BASOPHILS % (AUTO) 3.3 % (0.0-2.0); EOSINOPHILS # (AUTO) 0.4 K/uL (0.0-0.7); EOSINOPHILS % (AUTO) 2.8 % (0.0-7.0); HEMATOCRIT 27.2 % (40-50); HEMOGLOBIN 9.1 G/DL (14.0-18.0); LYMPHOCYTES # (AUTO) 2.4 K/UL (0.8-4.8); LYMPHOCYTES % (AUTO) 16.4 % (20.5-51.5); MEAN CORPUSCULAR HEMOGLOBIN 27.6 UUG (27.0-31.0); MEAN CORPUSCULAR HGB CONC 33 g/dL (32.0-37.0); MEAN CORPUSCULAR VOLUME 82.9 FL (82.0-92.0); MONOCYTES # (AUTO) 1.7 K/UL (0.1-1.30); NEUTROPHILS # (AUTO) 9.6 K/UL (1.8-8.9); NEUTROPHILS % (AUTO) 65.5 % (38.5-71.5); PLATELET COUNT (AUTO) 921 K/UL (150-450); RED BLOOD CELL COUNT(AUTO) 3.28 MIL/UL (4.7-6.1); WHITE BLOOD COUNT (AUTO) 14.6 K/UL (4.0-11.2)
[2017-03-25] MEDS: METRONIDAZOLE 500 MG/NS 100ML 500 MG in PREMIXED 1 EACH IV SCH ×3 (05:51→22:14)
[2017-03-25] MEDS: NORMAL SALINE FLUSH 10 ML DISP.SYRIN IV SCH ×3 (05:52→22:14)
[2017-03-25] MEDS: IV D5/ 0.9% NACL 1,000 ML IV PRN ×2 (05:52→20:21)
[2017-03-25 05:54] LABS: CREATININE 3.9 mg/dL (0.6-1.3); MAGNESIUM 1.9 mg/dL (1.8-2.4); PHOSPHOROUS 5.7 mg/dL (2.5-4.9); POTASSIUM 4.7 mmol/L (3.5-5.1)
[2017-03-25] MEDS: hydrALAZINE HCL 50 MG TABLET GT SCH ×3 (05:57→22:15)
--- NOTE | 2017-03-25 06:00 | NUR ---
Stable on same vent settings. Still requires frequent suctioning. Addendum: 03/25/17 at 1927 by MARTI ALTAMIRANO RN Amended: Links added.
[2017-03-25 06:15] LABS: BAND % (MANUAL) 1 % (0-10); EOSINOPHILS % (MANUAL) 2 % (0-8); LYMPHOCYTES % (MANUAL) 23 % (20-40); MONOCYTES % (MANUAL) 12 % (2-10); NEUTROPHILS % (MANUAL) 62 % (42-75)
--- NOTE | 2017-03-25 07:30 | NUR ---
RECIEVED PT LYING ING BED, OPENS EYES BUT DOES NOT FOLLOW COMMANDS. HOB UP 35DEGREES. AFEBRILE. PT STILL HAVE A BITE BLOCK TO KEEP HIM FROM BITING HIS TONGUE. ALL EXTREMETIES ARE GENERALLY WEAK. AFEBRILE. CHRONIC TRACHE SHILEY8 INTACT. SAME VENT SETTING.
--- NOTE | 2017-03-25 08:30 | NUR ---
SEEN AND EXAMINED BY DR HUANG WITH NEW ORDERS. OKEYED TO START TUBE FEEDING VIA GTUBE.
[2017-03-25] MEDS: PANTOPRAZOLE SODIUM 40 MG VIAL IV SCH ×2 (08:39→20:32)
[2017-03-25] MEDS: LABETALOL HCL 200 MG TABLET GT SCH ×2 (08:40→20:33)
[2017-03-25] MEDS: Z GUARD REMEDY PASTE 57 GM TUBE TOP SCH ×2 (08:46→20:33)
[2017-03-25] MEDS: NOVASOURCE RENAL 1000 ML LIQUID GT PRN (10:05)
--- NOTE | 2017-03-25 10:30 | NUR ---
STARTED TUBE FEDDING NOVASOURSE RENAL AT 40ML/HR. NO RESIDUALS NOTED.
--- NOTE | 2017-03-25 10:30 | NUR ---
SEEN AND EXAMINED BY DR DYER AND DR BLANCHARD WITH NEW ORDERS. PT FOR EGD/COLONOSCOPY ON THURSDAY PER ORDER.
[2017-03-25] MEDS: EPOETIN ALFA 10,000 UNITS/ML VIAL SQ PRN (10:51)
--- NOTE | 2017-03-25 14:00 | NUR ---
PT HAS LARGE AMOUNT OF DARK BROWN DIARRHEA. AND REPOSITION TON TO SIDES.
[2017-03-25] MEDS: AMLODIPINE 5 MG TABLET PO SCH (17:27)
--- NOTE | 2017-03-25 17:34 | NUR ---
RESUMED CARE POST AM REPORT. PT IS AWAKE AND RESPONSIVE WITH NO DISTRESS ON VENT SETTINGS OF AC 12, VT 550, FIO2 40% AND PEEP 5. IN LINE MEDICATION GIVEN ORDERED. SUCTIONED FOR MODERATE AMOUNT OF THICK WHITISH SECRETIONS. ORAL CARE GIVEN WITH ORAL AIRWAY REMAIN IN PLACE. NO CHANGES RECEIVED TODAY.
[2017-03-25] MEDS: CEFEPIME HCL 1 G in IV DEXTROSE 5% 50 ML IV SCH (20:32)
[2017-03-26] VITALS (24 sets, daily range): BP systolic 95–148; BP diastolic 51–78
[2017-03-26] MEDS: INSULIN REGULAR, HUMAN 300 UNIT/3 ML VIAL SQ PRN ×5 (00:36→23:14)
[2017-03-26] MEDS: BLOOD SUGAR DIAGNOSTIC 1 EACH STRIP VI SCH ×5 (00:36→23:13)
[2017-03-26] MEDS: ALBUTEROL SULFATE 2.5 MG/3 ML NEBU NEB SCH ×4 (00:59→18:58)
[2017-03-26] MEDS: IPRATROPIUM BROMIDE 0.5 MG/2.5 ML NEBU NEB SCH ×4 (00:59→18:58)
--- NOTE | 2017-03-26 05:19 | NUR ---
Pt remains on Quinonez with no changes made to the ventilator settings. No resp. distress noted throughout the shift. Shiley 8 remains patent and secure; B/U Shiley 8 and BVM at bedside. Pt routinely sx'd and appeared to tolerate resp neb txs and vent settings well. Quinonez alarm parameters have been checked and remain audible. Addendum: 03/26/17 at 0534 by SHOAIB SANDERSON RT Oral bleeding noted. No blood in trach.
[2017-03-26 05:23] LABS: CREATININE 4.7 mg/dL (0.6-1.3); MAGNESIUM 1.7 mg/dL (1.8-2.4); PHOSPHOROUS 5.6 mg/dL (2.5-4.9); POTASSIUM 3.4 mmol/L (3.5-5.1)
[2017-03-26 05:29] LABS: BASOPHILS # (AUTO) 0.1 K/uL (0.0-8.0); BASOPHILS % (AUTO) 0.4 % (0.0-2.0); EOSINOPHILS # (AUTO) 0.6 K/uL (0.0-0.7); EOSINOPHILS % (AUTO) 3.3 % (0.0-7.0); HEMATOCRIT 26.3 % (40-50); HEMOGLOBIN 8.7 G/DL (14.0-18.0); LYMPHOCYTES # (AUTO) 2.3 K/UL (0.8-4.8); LYMPHOCYTES % (AUTO) 13.7 % (20.5-51.5); MEAN CORPUSCULAR HEMOGLOBIN 27.8 UUG (27.0-31.0); MEAN CORPUSCULAR HGB CONC 33 g/dL (32.0-37.0); MEAN CORPUSCULAR VOLUME 83.5 FL (82.0-92.0); MONOCYTES # (AUTO) 1.6 K/UL (0.1-1.30); MONOCYTES % (AUTO) 9.8 % (0.0-11.0); NEUTROPHILS # (AUTO) 12.1 K/UL (1.8-8.9); NEUTROPHILS % (AUTO) 72.8 % (38.5-71.5); PLATELET COUNT (AUTO) 845 K/UL (150-450); RED BLOOD CELL COUNT(AUTO) 3.15 MIL/UL (4.7-6.1); WHITE BLOOD COUNT (AUTO) 16.7 K/UL (4.0-11.2)
[2017-03-26 05:57] LABS: BAND % (MANUAL) 2 % (0-10); EOSINOPHILS % (MANUAL) 5 % (0-8); LYMPHOCYTES % (MANUAL) 18 % (20-40); MONOCYTES % (MANUAL) 11 % (2-10); NEUTROPHILS % (MANUAL) 64 % (42-75)
[2017-03-26] MEDS: NORMAL SALINE FLUSH 10 ML DISP.SYRIN IV SCH ×3 (06:22→21:26)
[2017-03-26] MEDS: METRONIDAZOLE 500 MG/NS 100ML 500 MG in PREMIXED 1 EACH IV SCH ×3 (06:22→21:51)
[2017-03-26] MEDS: hydrALAZINE HCL 50 MG TABLET GT SCH ×3 (06:22→21:51)
--- NOTE | 2017-03-26 07:10 | NUR ---
Pt received in bed, laying semi-Jordan's, unable to communicate.. Pt trach: Ghada 8 DCT, in place and secure with tie.. Continuous mechanical ventilation, vent: Quinonez, settings: A/C 12, Vt 550, PEEP +5, FiO2 40%, tolerating well at this time, will continue to monitor.. BVM / back up trach at bedside.. Vent alarms checked and documented as found.. Vent alarms on / audible / functioning properly at this time.. No s/s of distress at this time, will continue to monitor..
[2017-03-26] MEDS: AMLODIPINE 5 MG TABLET PO SCH (08:37)
[2017-03-26] MEDS: PANTOPRAZOLE SODIUM 40 MG VIAL IV SCH ×2 (08:37→21:06)
[2017-03-26] MEDS: LABETALOL HCL 200 MG TABLET GT SCH ×2 (08:38→21:06)
[2017-03-26] MEDS: Z GUARD REMEDY PASTE 57 GM TUBE TOP SCH ×2 (08:39→21:06)
[2017-03-26 09:36] LABS: ABG BASE EXCESS -4.9 mmol/L; ABG HCO3 18.9 mmol/L; ABG PH 7.417 (7.350-7.450); ABG PO2 147.7 mmHg (75.0-100.0); ABG SITE LEFT RADIAL; ABG TOTAL HEMOGLOBIN 8.6 G/dL (13.5-18.0); COHb 0.8 % (0.5-1.5); MetHb 0.4 % (0.0-1.5); VENT MODE VENT - A/C; VT, ABG 550 mL
--- NOTE | 2017-03-26 09:55 | NUR ---
FiO2 lowered to 30% post ABG results.. RN aware..
--- NOTE | 2017-03-26 11:30 | NUR ---
SEEN AND EXAMINED BY DR DYER WITH NEW ORDERS. ABG DONE AND PO2 IS HIGH. DECREASED FIO2 DOWN TO 35% BY THE RT.
[2017-03-26] MEDS: IV D5/ 0.9% NACL 1,000 ML IV PRN (12:40)
--- NOTE | 2017-03-26 13:20 | NUR ---
PT DOWN TO CT FOR CT ABDOMEN WITH/WITHOUT CONTRAST DONE AND TOLERATED WELL.
--- NOTE | 2017-03-26 15:00 | NUR ---
HEMODIALYSIS STARTED AT THE BEDSIDE . PT TOLERATED GOOD. POST CT ABDOMEN WITH IV CONTRAST.
[2017-03-26] MEDS: EPOETIN ALFA 10,000 UNITS/ML VIAL SQ PRN (15:21)
[2017-03-26] MEDS ORDERED: ALBUMIN HUMAN 25% 100 ML IV PRN (16:00)
--- NOTE | 2017-03-26 16:00 | NUR ---
SEEN AND EXAMINED BY DR PALACIOS. CT OF ABDOMEN RESULT REPORTED AND SEEN BY HIM. PT FOR EGD/COLONOSCOPY IN THE MORNING. CONSENTED BY PT SISTER OVER THE PHONE. PT WILL BE NPO AFTER MN ORDERED.
--- NOTE | 2017-03-26 17:20 | NUR ---
HEMODIALYSIS IS DONE. PT IS SLEEPING THE WHOLE TIME OF THE DIALYSIS.. IVF DISCONTINUED ORDERED BY DR TONG. TUBE FEEDING IN PROGRESS. TOTAL FLUID OUT IS 2.5LITERS.
--- NOTE | 2017-03-26 20:00 | NUR ---
Eyes open, does not focus or track. Does not follow any commands. Appears comfortable on current vent settings. Trach Shiley 8 intact. No vent weaning yet. Requires frequent suctioning clifford. orally. Stable rhythm and VS. G-Tube feeding turned off; NPO for 0900 EGD and colonoscopy. Will do Golytely prep tonight. Please see CCU flowsheet for full assessment and clinical data.
[2017-03-26] MEDS: CEFEPIME HCL 1 G in IV DEXTROSE 5% 50 ML IV SCH (21:06)
[2017-03-26] MEDS ORDERED: GOLYTELY 4000 ML BOTTLE PO ONE (22:00)
[2017-03-27] VITALS (23 sets, daily range): BP systolic 95–150; BP diastolic 50–87
[2017-03-27] MEDS: IPRATROPIUM BROMIDE 0.5 MG/2.5 ML NEBU NEB SCH ×4 (00:35→19:32)
[2017-03-27] MEDS: ALBUTEROL SULFATE 2.5 MG/3 ML NEBU NEB SCH ×4 (00:35→19:32)
--- NOTE | 2017-03-27 04:00 | NUR ---
Continues to require frequent oral care and suctioning. Pt having frequent loose liquid stools from Golytely prep. Kept clean, dry and comfortable. Turned/positioned q 2hr and PRN. Nursing comfort measures observed at all times.
[2017-03-27] MEDS: BLOOD SUGAR DIAGNOSTIC 1 EACH STRIP VI SCH ×3 (05:40→18:20)
[2017-03-27] MEDS: Z GUARD REMEDY PASTE 57 GM TUBE TOP PRN (05:41)
[2017-03-27] MEDS: METRONIDAZOLE 500 MG/NS 100ML 500 MG in PREMIXED 1 EACH IV SCH ×3 (05:41→22:15)
[2017-03-27] MEDS: NORMAL SALINE FLUSH 10 ML DISP.SYRIN IV SCH ×3 (05:41→22:15)
[2017-03-27] MEDS: hydrALAZINE HCL 50 MG TABLET GT SCH ×3 (05:44→22:00)
[2017-03-27 06:12] LABS: BASOPHILS # (AUTO) 0.1 K/uL (0.0-8.0); BASOPHILS % (AUTO) 0.5 % (0.0-2.0); EOSINOPHILS # (AUTO) 0.5 K/uL (0.0-0.7); EOSINOPHILS % (AUTO) 2.7 % (0.0-7.0); HEMATOCRIT 26.8 % (40-50); HEMOGLOBIN 8.9 G/DL (14.0-18.0); MEAN CORPUSCULAR HEMOGLOBIN 27.6 UUG (27.0-31.0); MEAN CORPUSCULAR HGB CONC 33 g/dL (32.0-37.0); MEAN CORPUSCULAR VOLUME 82.8 FL (82.0-92.0); MONOCYTES # (AUTO) 1.7 K/UL (0.1-1.30); MONOCYTES % (AUTO) 9.4 % (0.0-11.0); NEUTROPHILS # (AUTO) 13.2 K/UL (1.8-8.9); NEUTROPHILS % (AUTO) 71.4 % (38.5-71.5); PLATELET COUNT (AUTO) 811 K/UL (150-450); RED BLOOD CELL COUNT(AUTO) 3.24 MIL/UL (4.7-6.1); WHITE BLOOD COUNT (AUTO) 18.5 K/UL (4.0-11.2)
[2017-03-27 06:41] LABS: THYROID STIMULATING HORMONE 2.024 mIU/mL (0.358-3.740)
--- NOTE | 2017-03-27 07:11 | NUR ---
PT RECEIVED ON POWELL VENT WITH SETTING OF AC 12, VT550, PEEP +5, FIO2 30% WITH SHILEY 8 TRACH. PT AT THIS TIME HAS BITE BLOCK IN PLACE. PT TOLERATING VENT WELL TX WAS GIVEN ORAL CARE WAS DONE. PT CUFF WAS CHECK WITH INTELLIGENCE AGENT. PT TRACH SECURTED AND INTACT WITH TIE. PT WAS SUCTION. PT VENT ALARM ON AND AUDIBLE. NO ABG SCHEDULE FOR TODAY. WILL CONTINUE TO MONITOR PT THROUGHOUT SHIFT.
--- NOTE | 2017-03-27 07:15 | NUR ---
report received from Bhavani. patient 71 yr old male was admitted on 03/21 for anemia/bleeding/ today is for egd and colonoscopy. on vent. TRach Ghada #8 to ventilator ac 12 tv550, peep 5 fio2 30%. has a midline catheter via karla, has a HD cathteter via rightsubclavian cath. marcano catheter intact with scanty urine IV saline lock via right foot. on first step mattress. patient is ibtunded. eyes are open but not following commands Addendum: 03/27/17 at 1532 by NOVA FORTE RN Amended: Links added.
[2017-03-27 08:07] LABS: BILIRUBIN,TOTAL 0.3 mg/dL (0.2-1.0); CREATININE 3.6 mg/dL (0.6-1.3); MAGNESIUM 1.4 mg/dL (1.8-2.4); PHOSPHOROUS 4.1 mg/dL (2.5-4.9); POTASSIUM 3.6 mmol/L (3.5-5.1)
--- NOTE | 2017-03-27 08:30 | NUR ---
seen by dr Centeno. orders received Addendum: 03/27/17 at 1017 by NOVA FORTE RN Amended: Links added.
--- NOTE | 2017-03-27 09:00 | NUR ---
EGC/COLONOSCOPY done by Dr Avila under IV Propofol. Anesthesiologis Dr Siddiqui in attendance. OR crew at the bedside. Addendum: 03/27/17 at 1015 by NOVA FORTE RN Amended: Links added. Addendum: 03/27/17 at 1015 by NOVA FORTE RN Amended: Links added. Addendum: 03/27/17 at 1017 by NOVA FORTE RN Amended: Links added.
[2017-03-27] MEDS: PANTOPRAZOLE SODIUM 40 MG VIAL IV SCH ×2 (09:41→21:27)
[2017-03-27] MEDS: AMLODIPINE 5 MG TABLET PO SCH (09:41)
[2017-03-27] MEDS: LABETALOL HCL 200 MG TABLET GT SCH ×2 (09:41→21:27)
[2017-03-27] MEDS: Z GUARD REMEDY PASTE 57 GM TUBE TOP SCH ×2 (09:42→21:27)
[2017-03-27] MEDS: NOVASOURCE RENAL 1000 ML LIQUID GT PRN (09:56)
--- NOTE | 2017-03-27 10:15 | NUR ---
all meds and tube fdg resumed. Addendum: 03/27/17 at 1015 by NOVA FORTE RN Amended: Adarsh added. Addendum: 03/27/17 at 1017 by NOVA FORTE RN Amended: Adarsh added.
[2017-03-27] MEDS ORDERED: PROPOFOL 200 MG/20 ML BOTTLE IV ONE (11:10)
[2017-03-27] MEDS ORDERED: IV NORMAL SALINE 1000 ML BAG IV ONE (11:10)
[2017-03-27] MEDS: INSULIN REGULAR, HUMAN 300 UNIT/3 ML VIAL SQ PRN ×2 (11:54→18:22)
--- NOTE | 2017-03-27 12:10 | NUR ---
seen by dr cordoba with new orders Addendum: 03/27/17 at 1525 by NOVA FORTE RN Amended: Links added.
--- NOTE | 2017-03-27 13:45 | NUR ---
seen by dr grant/ moustapha orders received Addendum: 03/27/17 at 1523 by NOVA FORTE RN Amended: Links added.
--- NOTE | 2017-03-27 15:09 | NUR ---
complete bed bath given including trach care, oral care, gt site care and sacral wound care. Addendum: 03/27/17 at 1509 by NOVA FORTE RN Amended: Links added. Addendum: 03/27/17 at 1523 by NOVA FORTE RN Amended: Links added.
--- NOTE | 2017-03-27 18:00 | NUR ---
seen by dr benjamin. alejo received. magnesium total 2 gms initiated.for magnesium 1.4 Addendum: 03/27/17 at 1831 by NOVA FORTE RN Amended: Links added.
[2017-03-27] MEDS: MAGNESIUM SULFATE/D5W 100 ML IV SCH ×3 (18:02→19:16)
--- NOTE | 2017-03-27 18:26 | NUR ---
murphy 204, covered with 4 units humulin R sq. Addendum: 03/27/17 at 1827 by NOVA FORTE RN Amended: Links added.
--- NOTE | 2017-03-27 19:32 | NUR ---
Pt received laying in bed, semi-Jordan's, unable to communicate - obtunded.. Pt trach: Lisaley 8 DCT, in place and secure with tie.. Continuous mechanical ventilation with vent: Quinonez, settings: A/C 12, Vt 550, PEEP +5, FiO2 30%, tolerating well at this time, will continue to monitor.. BVM / back up trach at bedside.. Vent alarms checked and documented as received.. Vent alarms on / audible / functioning properly at this time.. No s/s of respiratory distress / S.O.B at this time, will continue to monitor..
--- NOTE | 2017-03-27 20:00 | NUR ---
Appears comfortable on current vent settings. Trach Shiley 8 intact. No vent weaning noted. Continues to require frequent suctioning, more so orally. S/P EGD, colonoscopy today. Stable rhythm and VS. Tube feedings well tolerated. Please see CCU flowsheet for full assessment and clinical data.
[2017-03-27] MEDS: CEFEPIME HCL 1 G in IV DEXTROSE 5% 50 ML IV SCH (21:27)
[2017-03-28] VITALS (23 sets, daily range): BP systolic 98–135; BP diastolic 49–77
[2017-03-28] MEDS: BLOOD SUGAR DIAGNOSTIC 1 EACH STRIP VI SCH ×4 (00:14→17:33)
[2017-03-28] MEDS: INSULIN REGULAR, HUMAN 300 UNIT/3 ML VIAL SQ PRN ×4 (00:16→17:42)
[2017-03-28] MEDS: IPRATROPIUM BROMIDE 0.5 MG/2.5 ML NEBU NEB SCH ×4 (02:17→19:24)
[2017-03-28] MEDS: ALBUTEROL SULFATE 2.5 MG/3 ML NEBU NEB SCH ×4 (02:17→19:24)
[2017-03-28] MEDS: METRONIDAZOLE 500 MG/NS 100ML 500 MG in PREMIXED 1 EACH IV SCH ×3 (05:46→22:27)
[2017-03-28] MEDS: NORMAL SALINE FLUSH 10 ML DISP.SYRIN IV SCH ×3 (05:47→22:27)
[2017-03-28] MEDS: hydrALAZINE HCL 50 MG TABLET GT SCH ×3 (05:52→22:26)
[2017-03-28 05:57] LABS: BASOPHILS % (AUTO) 0.2 % (0.0-2.0); EOSINOPHILS # (AUTO) 0.5 K/uL (0.0-0.7); EOSINOPHILS % (AUTO) 2.4 % (0.0-7.0); HEMOGLOBIN 8.6 G/DL (14.0-18.0); LYMPHOCYTES # (AUTO) 2.8 K/UL (0.8-4.8); LYMPHOCYTES % (AUTO) 14.1 % (20.5-51.5); MEAN CORPUSCULAR HEMOGLOBIN 27.4 UUG (27.0-31.0); MEAN CORPUSCULAR HGB CONC 33 g/dL (32.0-37.0); MEAN CORPUSCULAR VOLUME 82.4 FL (82.0-92.0); MONOCYTES % (AUTO) 9.9 % (0.0-11.0); NEUTROPHILS # (AUTO) 14.6 K/UL (1.8-8.9); NEUTROPHILS % (AUTO) 73.4 % (38.5-71.5); PLATELET COUNT (AUTO) 749 K/UL (150-450); RED BLOOD CELL COUNT(AUTO) 3.15 MIL/UL (4.7-6.1); WHITE BLOOD COUNT (AUTO) 19.9 K/UL (4.0-11.2)
[2017-03-28 05:59] LABS: BILIRUBIN,TOTAL 0.3 mg/dL (0.2-1.0); CREATININE 4.5 mg/dL (0.6-1.3); MAGNESIUM 2.2 mg/dL (1.8-2.4); PHOSPHOROUS 3.9 mg/dL (2.5-4.9); POTASSIUM 3.4 mmol/L (3.5-5.1); TOTAL PROTEIN, SERUM 6.9 g/dL (6.4-8.2)
--- NOTE | 2017-03-28 06:00 | NUR ---
Had some periods of low BP of SBP 90-100; had to hold off 2200 Apresoline. Otherwise, general condition unchanged. Tube feedings well tolerated. Aspiration precautions observed at all times. Nursing comfort measures maintained. Please see CCU flowsheet for trends and clinical data. No family visit or inquiry this shift.
--- NOTE | 2017-03-28 07:00 | NUR ---
RECEIVED PT ON POWELL VENT WITH CURRENT SETTINGS OF AC 12, VT 550, PEEP +5, FIO2 30%. NO CHANGES MADE ON VENT AT THIS TIME. VENT CHECKED. ALARM PARAMETERS CHECKED AND ARE FUNCTIONING PROPERLY. TRACH IS PATENT AND SECURED WITH FOAM TRACH TIES. TRACH TIE AND INNER CANNULA CHANGED PER RN'S REQUEST. SUCTIONED MODERATE AMOUNT OF THICK, YELLOWISH/PALE SECRETIONS. TOLERATED ALBUTEROL/ATROVENT TX. NO ADVERSE REACTIONS NOTED DURING OR AFTER TX. BVM AND BACK UP TRACH ARE AT BEDSIDE. WILL CONTINUE TO MONITOR PT.
--- NOTE | 2017-03-28 07:00 | NUR ---
book canvasser here to do dialysis procedure.
[2017-03-28] MEDS: AMLODIPINE 5 MG TABLET PO SCH (09:14)
[2017-03-28] MEDS: PANTOPRAZOLE SODIUM 40 MG VIAL IV SCH (09:14)
[2017-03-28] MEDS: Z GUARD REMEDY PASTE 57 GM TUBE TOP SCH ×2 (09:15→21:03)
[2017-03-28] MEDS: LABETALOL HCL 200 MG TABLET GT SCH ×2 (09:15→21:04)
[2017-03-28] MEDS: EPOETIN ALFA 10,000 UNITS/ML VIAL SQ PRN (09:50)
[2017-03-28] MEDS: NOVASOURCE RENAL 1000 ML LIQUID GT PRN (09:50)
[2017-03-28] MEDS: IV NORMAL SALINE 250 ML IV PRN (10:07)
[2017-03-28 11:08] LABS: CARBOHYDRATE ANTIGEN, 19-9 36 U/mL (0-35)
--- NOTE | 2017-03-28 12:00 | NUR ---
seen by dr Ac arroyo. orders received for ct guided needle biopsy Addendum: 03/28/17 at 1350 by NOVA FORTE RN Amended: Links added.
--- NOTE | 2017-03-28 12:15 | NUR ---
murphy 220, covered with 4 units Joce SQ Addendum: 03/28/17 at 1215 by NOVA FORTE RN Amended: Links added.
--- NOTE | 2017-03-28 13:48 | NUR ---
HD completed with 2liters fluid out. Patient tolerated procedure well. Dialysis access site dressing done by LEXX Addendum: 03/28/17 at 1348 by NOVA FORTE RN Amended: Links added. Addendum: 03/28/17 at 1350 by NOVA FORTE RN Amended: Links added.
[2017-03-28 14:09] LABS: HEPATITIS B SURFACE AB Non Reactive (.); HEPATITIS B SURFACE AG Negative (Negative)
--- NOTE | 2017-03-28 16:45 | NUR ---
complete bed bath given including wound care/oral care.repositioned thereafter Addendum: 03/28/17 at 1645 by NOVA FORTE RN Amended: Links added. Addendum: 03/28/17 at 1645 by NOVA FORTE RN Amended: Links added.
--- NOTE | 2017-03-28 17:51 | NUR ---
murphy 215, covered with 4 units humulin R SQ Addendum: 03/28/17 at 1751 by NOVA FORTE RN Amended: Links added.
[2017-03-28] MEDS: PROTEIN SUPPLEMENT (PROSTAT) 30 ML LIQUID GT SCH (18:02)
--- NOTE | 2017-03-28 18:32 | NUR ---
per Dietary recommendation, tube fdg increased to 45ml/hr and prostat 1 packet added 2times a day Addendum: 03/28/17 at 1834 by NOVA FORTE RN Amended: Links added.
--- NOTE | 2017-03-28 19:24 | NUR ---
Pt received in bed, laying semi-Jordan's, unable to communicate - obtunded.. Pt trach: Lisaley 8 DCT, in place and secure with tie.. Continuous mechanical ventilation with vent: Quinonez, settings: A/C 12, Vt 550, PEEP +5, FiO2 30%, tolerating well at this time, will continue to monitor.. BVM / back up trach at bedside.. Vent alarms checked and documented as received.. Vent alarms on / audible / functioning properly at this time.. No s/s of respiratory distress / S.O.B at this time, will continue to monitor.. Respiratory meds: 2.5 mg Albuterol + 0.5 mg Atrovent will be given inline as ordered by .
--- NOTE | 2017-03-28 19:26 | NUR ---
GILMERAR report given to GEO Arechiga. Addendum: 03/28/17 at 1926 by NOVA FORTE RN Amended: Links added.
[2017-03-28] MEDS: LACTOBACILLUS RHAMNOSUS GG 1 EACH CAPSULE PO SCH (21:02)
[2017-03-28] MEDS: FERROUS SULFATE 300 MG/5 ML LIQUID UDC GT SCH (21:02)
[2017-03-28] MEDS: CEFEPIME HCL 1 G in IV DEXTROSE 5% 50 ML IV SCH (21:03)
[2017-03-29] VITALS (24 sets, daily range): BP systolic 103–148; BP diastolic 55–78
[2017-03-29] MEDS: BLOOD SUGAR DIAGNOSTIC 1 EACH STRIP VI SCH ×5 (00:07→23:27)
[2017-03-29] MEDS: INSULIN REGULAR, HUMAN 300 UNIT/3 ML VIAL SQ PRN ×5 (00:17→23:44)
[2017-03-29] MEDS: ALBUTEROL SULFATE 2.5 MG/3 ML NEBU NEB SCH ×4 (02:23→19:07)
[2017-03-29] MEDS: IPRATROPIUM BROMIDE 0.5 MG/2.5 ML NEBU NEB SCH ×4 (02:23→19:06)
--- NOTE | 2017-03-29 03:00 | NUR ---
noted while giving oral care to pt that blood coming out of his mouth. Care given and mouth inspected. Pt bit his tongue. had uneventful night. no acute distress. complete care done.
[2017-03-29] MEDS: NORMAL SALINE FLUSH 10 ML DISP.SYRIN IV SCH ×3 (06:00→21:34)
[2017-03-29] MEDS: METRONIDAZOLE 500 MG/NS 100ML 500 MG in PREMIXED 1 EACH IV SCH ×3 (06:25→21:34)
[2017-03-29] MEDS: hydrALAZINE HCL 50 MG TABLET GT SCH ×3 (06:25→21:33)
--- NOTE | 2017-03-29 07:20 | NUR ---
0600 am NS not changed 2/2 due to change at 0950 am.
--- NOTE | 2017-03-29 07:22 | NUR ---
Pt rec'd on Quinonez vent AC12 VT550 PEEP+5 30%FiO2. Venting via Shiley 8DCT trach tube, in place, patent and secure. Pt tolerating vent well, no sob/distress noted at this time. Sxn'ing PRN. Vent alarms audible, checked and reset. Some bloody secretions noted, tracheal/oral due to tongue bites. will cont to monitor and report any changes
[2017-03-29] MEDS: FERROUS SULFATE 300 MG/5 ML LIQUID UDC GT SCH ×2 (08:19→21:31)
[2017-03-29] MEDS: LACTOBACILLUS RHAMNOSUS GG 1 EACH CAPSULE PO SCH ×2 (08:19→21:33)
[2017-03-29] MEDS: LABETALOL HCL 200 MG TABLET GT SCH ×2 (08:20→21:00)
[2017-03-29] MEDS: PANTOPRAZOLE ORAL SUSPENSION 40 MG SUSPDR.PKT GT SCH (08:20)
[2017-03-29] MEDS: AMLODIPINE 5 MG TABLET PO SCH (08:20)
[2017-03-29] MEDS: Z GUARD REMEDY PASTE 57 GM TUBE TOP SCH ×2 (08:21→21:33)
[2017-03-29] MEDS: NOVASOURCE RENAL 1000 ML LIQUID GT PRN (08:22)
[2017-03-29] MEDS: IV NORMAL SALINE 250 ML IV PRN (08:23)
[2017-03-29] MEDS: PROTEIN SUPPLEMENT (PROSTAT) 30 ML LIQUID GT SCH ×2 (08:28→17:27)
--- NOTE | 2017-03-29 09:15 | NUR ---
bar report received from Karen GUARDADO. Patient remains tracheally intubated to vent. ac 12 tv 550, mmro7os, fio2 30%. is obtunded but responds to pain, is receiving tube fdg of renal novasource at 45ml/hr. was off times 4 hrs and will be resumed this am. IV ns tko rate via karla midline infusing. marcano catheter intact, had scanty urine output. Addendum: 03/29/17 at 0940 by NOVA FORTE RN Amended: Links added.
--- NOTE | 2017-03-29 11:50 | NUR ---
seen by dr burton. orders received Addendum: 03/29/17 at 1354 by NOVA FORTE RN Amended: Adarsh added. Addendum: 03/29/17 at 1356 by NOVA FORTE RN Amended: Adarsh added. Addendum: 03/29/17 at 1407 by NOVA FORTE RN Amended: Links added. Addendum: 03/29/17 at 1408 by NOVA FORTE RN Amended: Links added.
[2017-03-29 11:56] LABS: BASOPHILS # (AUTO) 0.2 K/uL (0.0-8.0); BASOPHILS % (AUTO) 0.9 % (0.0-2.0); EOSINOPHILS # (AUTO) 0.5 K/uL (0.0-0.7); EOSINOPHILS % (AUTO) 2.5 % (0.0-7.0); HEMATOCRIT 26.3 % (40-50); HEMOGLOBIN 8.5 G/DL (14.0-18.0); LYMPHOCYTES # (AUTO) 3.2 K/UL (0.8-4.8); LYMPHOCYTES % (AUTO) 16.7 % (20.5-51.5); MEAN CORPUSCULAR HEMOGLOBIN 26.7 UUG (27.0-31.0); MEAN CORPUSCULAR HGB CONC 32 g/dL (32.0-37.0); MEAN CORPUSCULAR VOLUME 82.3 FL (82.0-92.0); MONOCYTES # (AUTO) 1.8 K/UL (0.1-1.30); MONOCYTES % (AUTO) 9.1 % (0.0-11.0); NEUTROPHILS # (AUTO) 13.6 K/UL (1.8-8.9); NEUTROPHILS % (AUTO) 70.8 % (38.5-71.5); PLATELET COUNT (AUTO) 603 K/UL (150-450); RED BLOOD CELL COUNT(AUTO) 3.19 MIL/UL (4.7-6.1); WHITE BLOOD COUNT (AUTO) 19.3 K/UL (4.0-11.2)
[2017-03-29 11:57] LABS: BILIRUBIN,TOTAL 0.2 mg/dL (0.2-1.0); CREATININE 4.3 mg/dL (0.6-1.3); PHOSPHOROUS 3.3 mg/dL (2.5-4.9); POTASSIUM 4.1 mmol/L (3.5-5.1); TOTAL PROTEIN, SERUM 7.1 g/dL (6.4-8.2)
--- NOTE | 2017-03-29 12:00 | NUR ---
murphy 189, covered with 3 units humulin R SQ Addendum: 03/29/17 at 1343 by NOVA FORTE RN Amended: Links added. Addendum: 03/29/17 at 1354 by NOVA FORTE RN Amended: Links added. Addendum: 03/29/17 at 1356 by NOVA FORTE RN Amended: Links added. Addendum: 03/29/17 at 1407 by NOVA FORTE RN Amended: Links added. Addendum: 03/29/17 at 1408 by NOVA FORTE RN Amended: Links added.
--- NOTE | 2017-03-29 12:00 | NUR ---
seen by dr Shen. no orders received but waiting for pending CT guided liver needle biopsy. Addendum: 03/29/17 at 1356 by NOVA FORTE RN Amended: Links added. Addendum: 03/29/17 at 1407 by NOVA FORTE RN Amended: Links added. Addendum: 03/29/17 at 1408 by NOVA FORTE RN Amended: Links added.
--- NOTE | 2017-03-29 12:30 | NUR ---
seen by Karen [email or web address] [email or web address] orders received Addendum: 03/29/17 at 1407 by NOVA FORTE RN Amended: Links added. Addendum: 03/29/17 at 1408 by NOVA FORTE RN Amended: Links added.
[2017-03-29 12:58] LABS: BASOPHILS % (MANUAL) 1 % (0-2); EOSINOPHILS % (MANUAL) 3 % (0-8); LYMPHOCYTES % (MANUAL) 16 % (20-40); MONOCYTES % (MANUAL) 5 % (2-10); NEUTROPHILS % (MANUAL) 75 % (42-75)
--- NOTE | 2017-03-29 13:00 | NUR ---
seen by dr benjamin no new orders Addendum: 03/29/17 at 1408 by NOVA FORTE RN Amended: Links added.
--- NOTE | 2017-03-29 16:19 | NUR ---
complete bed bath done including trach care, gt care and wound care. repositined thereafter patient continues to bleed from tongue injury, oral packing applied Addendum: 03/29/17 at 1619 by NOVA FORTE RN Amended: Links added.
--- NOTE | 2017-03-29 18:01 | NUR ---
murphy 225, covered with 4 units Joce SQ Addendum: 03/29/17 at 1801 by NOVA FORTE RN Amended: Links added.
--- NOTE | 2017-03-29 19:09 | NUR ---
Pt received on Quinonez vent with the following settings of AC-12, Vt-550, PEEP+5, FIO2-30%, trached with Shiley#8 DCT trach, which is in the place and secure. No s/s of respiratory distress noted. Airway care done, pt responded to physical stimuli. In-line HHN tx with 2.5mg Albuterol+0.5mg Atrovent given, no adverse reaction noted. Resus. bag and back up trach at bedside. Vent and alarms checked and reset.
--- NOTE | 2017-03-29 19:28 | NUR ---
report given to Anuj Addendum: 03/29/17 at 1928 by NOVA FORTE RN Amended: Links added.
[2017-03-29] MEDS: CEFEPIME HCL 1 G in IV DEXTROSE 5% 50 ML IV SCH (21:33)
[2017-03-30] VITALS (25 sets, daily range): BP systolic 107–140; BP diastolic 60–79
--- NOTE | 2017-03-30 00:01 | NUR ---
G-tube / start NPO for Bx procedure in AM. Right upper arm mid-line site clear. Right subclavian dialysis catheter clamped. Noted old tongue bites. Trach to vent. Fernandez / straight drain bag. Turned Q2H & repositioned.
[2017-03-30] MEDS: IPRATROPIUM BROMIDE 0.5 MG/2.5 ML NEBU NEB SCH ×4 (01:11→19:10)
[2017-03-30] MEDS: ALBUTEROL SULFATE 2.5 MG/3 ML NEBU NEB SCH ×4 (01:12→19:10)
[2017-03-30] MEDS: IV NORMAL SALINE 250 ML IV PRN (05:04)
[2017-03-30] MEDS: NORMAL SALINE FLUSH 10 ML DISP.SYRIN IV SCH ×3 (05:06→22:24)
[2017-03-30] MEDS: METRONIDAZOLE 500 MG/NS 100ML 500 MG in PREMIXED 1 EACH IV SCH ×3 (05:08→22:24)
[2017-03-30] MEDS: hydrALAZINE HCL 50 MG TABLET GT SCH ×3 (05:09→22:25)
[2017-03-30 05:28] LABS: BILIRUBIN,TOTAL 0.3 mg/dL (0.2-1.0); CREATININE 4.5 mg/dL (0.6-1.3); MAGNESIUM 1.9 mg/dL (1.8-2.4); POTASSIUM 3.5 mmol/L (3.5-5.1); TOTAL PROTEIN, SERUM 7.3 g/dL (6.4-8.2)
--- NOTE | 2017-03-30 05:28 | NUR ---
Cont. monitor pt on present vent settings. During the shift no respiratory distress noted. Present vent settings pt tolerated well, no changes made. Sx and lavage prn. Oral care done. HME and Sx Delacruz changed. Resus. bag and back up trach at bedside. Vent and alarms checked and reset.
[2017-03-30 05:37] LABS: BASOPHILS % (AUTO) 0.2 % (0.0-2.0); EOSINOPHILS # (AUTO) 0.5 K/uL (0.0-0.7); EOSINOPHILS % (AUTO) 2.8 % (0.0-7.0); HEMATOCRIT 25.4 % (40-50); HEMOGLOBIN 8.4 G/DL (14.0-18.0); LYMPHOCYTES # (AUTO) 2.9 K/UL (0.8-4.8); LYMPHOCYTES % (AUTO) 14.6 % (20.5-51.5); MEAN CORPUSCULAR HEMOGLOBIN 27.1 UUG (27.0-31.0); MEAN CORPUSCULAR HGB CONC 33 g/dL (32.0-37.0); MEAN CORPUSCULAR VOLUME 82.6 FL (82.0-92.0); MONOCYTES # (AUTO) 1.6 K/UL (0.1-1.30); MONOCYTES % (AUTO) 8.4 % (0.0-11.0); NEUTROPHILS # (AUTO) 14.6 K/UL (1.8-8.9); PLATELET COUNT (AUTO) 596 K/UL (150-450); RED BLOOD CELL COUNT(AUTO) 3.08 MIL/UL (4.7-6.1); WHITE BLOOD COUNT (AUTO) 19.6 K/UL (4.0-11.2)
[2017-03-30] MEDS: BLOOD SUGAR DIAGNOSTIC 1 EACH STRIP VI SCH ×4 (06:42→23:43)
[2017-03-30] MEDS: INSULIN REGULAR, HUMAN 300 UNIT/3 ML VIAL SQ PRN ×4 (06:49→23:44)
[2017-03-30] MEDS: PANTOPRAZOLE ORAL SUSPENSION 40 MG SUSPDR.PKT GT SCH (08:06)
[2017-03-30] MEDS: LACTOBACILLUS RHAMNOSUS GG 1 EACH CAPSULE PO SCH ×2 (08:06→20:41)
[2017-03-30] MEDS: FERROUS SULFATE 300 MG/5 ML LIQUID UDC GT SCH ×2 (08:06→20:40)
[2017-03-30] MEDS: AMLODIPINE 5 MG TABLET PO SCH (08:07)
[2017-03-30] MEDS: Z GUARD REMEDY PASTE 57 GM TUBE TOP SCH ×2 (08:07→20:42)
[2017-03-30] MEDS: LABETALOL HCL 200 MG TABLET GT SCH ×2 (08:08→20:41)
[2017-03-30] MEDS: PROTEIN SUPPLEMENT (PROSTAT) 30 ML LIQUID GT SCH ×2 (08:42→17:01)
[2017-03-30] MEDS ORDERED: IOHEXOL 300MG/ML 100 ML INFUS..BTL ONE (10:11)
[2017-03-30] MEDS ORDERED: IV NORMAL SALINE 250 ML IV ONE (10:11)
[2017-03-30] MEDS ORDERED: ALBUMIN HUMAN 25% 100 ML IV PRN (11:15)
[2017-03-30] MEDS: EPOETIN ALFA 10,000 UNITS/ML VIAL SQ PRN (15:54)
--- NOTE | 2017-03-30 16:00 | NUR ---
hemodialysis started at 1145 and completed at 1545 with 1.5 liters of fluid out. patient tolerated procedure well. Addendum: 03/30/17 at 1816 by NOVA FORTE RN Amended: Links added. Addendum: 03/30/17 at 1820 by NOVA FORTE RN Amended: Links added.
[2017-03-30] MEDS: NOVASOURCE RENAL 1000 ML LIQUID GT PRN (16:06)
--- NOTE | 2017-03-30 18:07 | NUR ---
RECEIVED ON CURRENT VENT SETTINGS OF AC 12, VT 550, PEEP 5 AND FIO2 30%. PT IS AWAKE AND RESPONSIVE WITH NO DISTRESS, SATURATING AROUND 96 TO 99 THROUGHOUT THE SHIFT. IN LINE TREATMENT AND TOLERATED WELL. SUCTIONED FOR MODERATE AMOUNT OF THICK WHITISH SECRETIONS. BROUGHT TO CT SCAN AND BACK TO CCU WITHOUT INCIDENT. NO NEW ORDER RECEIVED.
--- NOTE | 2017-03-30 18:18 | NUR ---
dr elmore called to inform no need for needle biopsy. all meds and tube fdg resumed Addendum: 03/30/17 at 1820 by NOVA FORTE RN Amended: Links added.
--- NOTE | 2017-03-30 19:12 | NUR ---
report given to Bhavani Addendum: 03/30/17 at 1912 by NOVA FORTE RN Amended: Links added.
--- NOTE | 2017-03-30 19:26 | NUR ---
Pt rec'd on Quinonez settings AC 12, VT 550, PEEP+5 and FIO2-35%. No resp. distress noted. Shiley 8 is patent and secure; B/U Shiley 8 and BVM at bedside. Pt to be monitored throughout the shift, PRN SX and adm'd resp neb txs per MD orders. Quinonez alarm parameters have been checked and remain audible at this time. Pt placed back on PEEP+5 per RN AB request; she was made aware and notified. Addendum: 03/30/17 at 1929 by SHOAIB SANDERSON RT FIO2-30%, not 35% error
--- NOTE | 2017-03-30 20:00 | NUR ---
Chronic trach to vent. No weaning plans. Comfortable on current vent settings. Lots of oral secretions, tends to bleed with oral care. Stable VS and rhythm. Tube feedings fairly tolerated well, minimal residuals but has liquid, watery stools. Flexiseal irrigated for patency. NS TKO to midline right upper arm; Dialysis cath right jugular intact. S/P dialysis today. Fernandez output with sediments. Please see CCU flowsheet for full assessment and clinical data.
[2017-03-30] MEDS: CEFEPIME HCL 1 G in IV DEXTROSE 5% 50 ML IV SCH (20:41)
[2017-03-31] VITALS (23 sets, daily range): BP systolic 105–145; BP diastolic 57–86
--- NOTE | 2017-03-31 06:00 | NUR ---
Uneventful night; remains with stable VS and rhythm. Dr. Val Lozano plans to do sacral wound debridement. Please see CCU flowsheet for trends and clinical data. No family presence or inquiries this shift.
[2017-03-31] MEDS: NORMAL SALINE FLUSH 10 ML DISP.SYRIN IV SCH ×3 (06:02→22:44)
[2017-03-31] MEDS: METRONIDAZOLE 500 MG/NS 100ML 500 MG in PREMIXED 1 EACH IV SCH ×3 (06:02→22:44)
[2017-03-31] MEDS: BLOOD SUGAR DIAGNOSTIC 1 EACH STRIP VI SCH ×3 (06:02→17:12)
[2017-03-31] MEDS: hydrALAZINE HCL 50 MG TABLET GT SCH ×3 (06:06→22:43)
[2017-03-31] MEDS: INSULIN REGULAR, HUMAN 300 UNIT/3 ML VIAL SQ PRN ×2 (06:08→17:14)
[2017-03-31] MEDS: IV NORMAL SALINE 250 ML IV PRN (06:22)
[2017-03-31] MEDS: Z GUARD REMEDY PASTE 57 GM TUBE TOP PRN (06:23)
[2017-03-31] MEDS ORDERED: LIDOCAINE 1%-EPI 1:100,000 20 ML VIAL IJ PRN (07:30)
[2017-03-31] MEDS ORDERED: SILVER NITRATE APPLICATOR STICK EACH TP ONE (07:30)
[2017-03-31] MEDS ORDERED: SILVER NITRATE APPLICATOR STICK EACH TP PRN (07:45)
[2017-03-31] MEDS: IPRATROPIUM BROMIDE 0.5 MG/2.5 ML NEBU NEB SCH ×4 (08:02→19:08)
[2017-03-31] MEDS: ALBUTEROL SULFATE 2.5 MG/3 ML NEBU NEB SCH ×4 (08:03→19:09)
[2017-03-31] MEDS: LABETALOL HCL 200 MG TABLET GT SCH ×2 (08:11→21:07)
[2017-03-31] MEDS: FERROUS SULFATE 300 MG/5 ML LIQUID UDC GT SCH ×2 (08:18→21:07)
[2017-03-31] MEDS: PANTOPRAZOLE ORAL SUSPENSION 40 MG SUSPDR.PKT GT SCH (08:18)
[2017-03-31] MEDS: PROTEIN SUPPLEMENT (PROSTAT) 30 ML LIQUID GT SCH ×2 (08:18→17:11)
[2017-03-31] MEDS: LACTOBACILLUS RHAMNOSUS GG 1 EACH CAPSULE PO SCH ×2 (08:19→21:07)
[2017-03-31] MEDS: AMLODIPINE 5 MG TABLET PO SCH (08:19)
[2017-03-31] MEDS: Z GUARD REMEDY PASTE 57 GM TUBE TOP SCH ×2 (08:19→21:08)
--- NOTE | 2017-03-31 10:02 | NUR ---
Doctor Hoover spoke to radiologist regarding result, confirmation and reasoning was obtained why cancellation of liver biopsy was done. Dr. elmore and radiologist also spoke yesterday post CT scan. It was determined that CT abdomen was determined as a confirmation of cancerous mass.
--- NOTE | 2017-03-31 12:30 | NUR ---
david in the unit to do debridement. patient tolerated procedure.
[2017-03-31] MEDS ORDERED: DEXTROSE 50% 50 ML DISP.SYRIN IV PRN (15:00)
[2017-04-01] VITALS (24 sets, daily range): BP systolic 92–160; BP diastolic 63–91
--- NOTE | 2017-04-01 00:24 | NUR ---
PT ON CONT POWELL VENT WITH SHILEY # [address] AND SECURED, WITH SETTINGS, A/C 12, VT 550ML, PEEP5, 30%, PT DOES ASSIST AT TIMES, BUT MOSTLY WITH CONTROLLED VENTILATION, GOOD COUGH EFFORT, SUCTIONED VERY LIGHT PALE YELL TINGE SECRETIONS, CHECK CUFF, CHANGE HME , NO VENT CHANGES MADE AT THIS TIME, ALL ALARMS OK, AMBU BAG AT BEDSIDE, NEB INLINE Q6 WITH ALBUTEROL/ ATROVENT TOLL WELL. Shira GRUBBS RCP Addendum: 04/01/17 at 0026 by MAN GRUBBS RT Amended: Links added.
[2017-04-01] MEDS: IPRATROPIUM BROMIDE 0.5 MG/2.5 ML NEBU NEB SCH ×4 (00:43→19:08)
[2017-04-01] MEDS: ALBUTEROL SULFATE 2.5 MG/3 ML NEBU NEB SCH ×4 (00:43→19:08)
[2017-04-01] MEDS: INSULIN REGULAR, HUMAN 300 UNIT/3 ML VIAL SQ PRN ×5 (01:13→23:41)
[2017-04-01 05:10] LABS: BASOPHILS # (AUTO) 0.1 K/uL (0.0-8.0); BASOPHILS % (AUTO) 0.3 % (0.0-2.0); EOSINOPHILS # (AUTO) 0.5 K/uL (0.0-0.7); HEMATOCRIT 26.6 % (40-50); HEMOGLOBIN 8.6 G/DL (14.0-18.0); LYMPHOCYTES # (AUTO) 2.4 K/UL (0.8-4.8); LYMPHOCYTES % (AUTO) 14.5 % (20.5-51.5); MEAN CORPUSCULAR HEMOGLOBIN 26.4 UUG (27.0-31.0); MEAN CORPUSCULAR HGB CONC 32 g/dL (32.0-37.0); MEAN CORPUSCULAR VOLUME 82.2 FL (82.0-92.0); MONOCYTES # (AUTO) 1.8 K/UL (0.1-1.30); MONOCYTES % (AUTO) 10.5 % (0.0-11.0); NEUTROPHILS % (AUTO) 71.7 % (38.5-71.5); PLATELET COUNT (AUTO) 493 K/UL (150-450); RED BLOOD CELL COUNT(AUTO) 3.24 MIL/UL (4.7-6.1); WHITE BLOOD COUNT (AUTO) 16.8 K/UL (4.0-11.2)
[2017-04-01 05:14] LABS: BILIRUBIN,TOTAL 0.2 mg/dL (0.2-1.0); CREATININE 4.2 mg/dL (0.6-1.3); MAGNESIUM 1.7 mg/dL (1.8-2.4); PHOSPHOROUS 3.2 mg/dL (2.5-4.9); POTASSIUM 3.1 mmol/L (3.5-5.1); TOTAL PROTEIN, SERUM 7.7 g/dL (6.4-8.2)
[2017-04-01 05:22] LABS: BAND % (MANUAL) 4 % (0-10); EOSINOPHILS % (MANUAL) 4 % (0-8); LYMPHOCYTES % (MANUAL) 19 % (20-40); MONOCYTES % (MANUAL) 13 % (2-10); NEUTROPHILS % (MANUAL) 60 % (42-75)
[2017-04-01] MEDS: hydrALAZINE HCL 50 MG TABLET GT SCH ×3 (06:29→21:58)
[2017-04-01] MEDS: NORMAL SALINE FLUSH 10 ML DISP.SYRIN IV SCH ×3 (06:29→21:57)
[2017-04-01] MEDS: BLOOD SUGAR DIAGNOSTIC 1 EACH STRIP VI SCH ×5 (06:33→23:38)
--- NOTE | 2017-04-01 07:10 | NUR ---
Report to GEO Ellis. Pt has been stable all night.No significant issues. Turned and repositioned per protocol and continue skin care. Pictures taken at sacral area.Dressing changed, kept CDI.
--- NOTE | 2017-04-01 07:30 | NUR ---
RECIEVED PT ON SEMIFOWLER, OPENS EYES INTERMITTENTLY. NO APPARENT DISTRESS. VENT SETTING IS THE SAME, NO ABG ORDERED FOR THIS MORNING. TRACHEOSTOMY INTACT, SHILEY8 CLEAN AND DRY. SUCTION MODERATE AMOUNT OF WHITISH SECRETIONS. ORAL CARE RENDERED. TUBE FEEDING VIA GT INFUSING WELL. NO RESIDUALS NOTED. PT IS CONSTATLY HAVING A LIQUID BROWN STOOLS. FLEXI SEAL IN PLACE. REPOSITIONED TO LEFT SIDE. AFEBRILE.
[2017-04-01] MEDS: FERROUS SULFATE 300 MG/5 ML LIQUID UDC GT SCH ×2 (08:29→20:47)
[2017-04-01] MEDS: Z GUARD REMEDY PASTE 57 GM TUBE TOP SCH ×2 (08:29→20:47)
[2017-04-01] MEDS: PANTOPRAZOLE ORAL SUSPENSION 40 MG SUSPDR.PKT GT SCH (08:29)
[2017-04-01] MEDS: LACTOBACILLUS RHAMNOSUS GG 1 EACH CAPSULE PO SCH ×2 (08:29→20:47)
[2017-04-01] MEDS: AMLODIPINE 5 MG TABLET PO SCH ×2 (08:30→09:00)
[2017-04-01] MEDS: PROTEIN SUPPLEMENT (PROSTAT) 30 ML LIQUID GT SCH ×2 (08:31→16:20)
[2017-04-01] MEDS: LABETALOL HCL 200 MG TABLET GT SCH ×3 (08:32→20:46)
--- NOTE | 2017-04-01 08:45 | NUR ---
SEEN AND EXAMINED BY DR TONG, NO ORDERS MADE.
--- NOTE | 2017-04-01 09:00 | NUR ---
BLOOD PRESSURE MEDICATION NOT GIVEN BECAUSE PT IS GOING ON HD THIS MORNING.
--- NOTE | 2017-04-01 12:15 | NUR ---
SEEN AND EXAMINED BY DR DYER WITH NO NEW ORDERS.
[2017-04-01] MEDS: EPOETIN ALFA 10,000 UNITS/ML VIAL SQ PRN (14:22)
--- NOTE | 2017-04-01 14:30 | NUR ---
HEMODIALYSIS STARTED AT THE BEDSIDE RIGHT NOW.
[2017-04-01] MEDS ORDERED: ALBUMIN HUMAN 25% 100 ML IV PRN (14:45)
--- NOTE | 2017-04-01 17:00 | NUR ---
HEMODIALYSIS IS DONE. TOTAL FLUID PULLED OUT IS 1000ML. PT TOLERATED WELL.
[2017-04-01] MEDS: NOVASOURCE RENAL 1000 ML LIQUID GT PRN (17:51)
--- NOTE | 2017-04-01 18:00 | NUR ---
PM CARE AND WOUND TREATMENT DONE. ORAL CARE FREQUENT. NO APPARENT DISTRESS NOTED. CONDITION IS UNCHANGED. SEEN AND EXAMINED BY DR QUINTANA AND DR VILLALOBOS. NO NEW ORDERS MADE.
--- NOTE | 2017-04-01 19:08 | NUR ---
PT RECEIVED ON CONTINUOUS MECHANICAL VENTILATION. VENTILATOR CHECK DONE. CURRENT SETTINGS ARE AC 12, VT 550, PEEP +5, FIO2 30%. VENT ALARMS CHECKED, ARE ON AND AUDIBLE. NO CHANGES MADE ON VENTILATOR AT THIS TIME. TRACH IS PATENT AND SECURED WITH TRACH TIES. ORAL CARE DONE. HME CHANGED. SUCTIONED SMALL AMOUNT OF THICK, YELLOWISH/PALE SECRETIONS. PT GIVEN/TOLERATED ALBUTEROL/ATROVENT TX ORDERED BY MD. NO ADVERSE REACTIONS NOTED DURING OR AFTER BREATHING TREATMENT. AMBU BAG AND BACK UP TRACH ARE AT BEDSIDE. WILL CONTINUE TO MONITOR PT THROUGHOUT SHIFT. Addendum: 04/01/17 at 2215 by JESS LANZA RT Amended: Links added.
--- NOTE | 2017-04-01 20:00 | NUR ---
RECEIVED PT. OPEN HIS EYES TO VERBAL STIMULI W/ GOOD EYE CONTACT. TRACH TO VENT W/ SETTINGS OF AC-12,TV-550, FIO2-305, PEEP-+5, W/ O2 SAT OF 100%. G-TUBE INTACT W/ TUBE FDG. ON NOVASOURCE RENAL @ 45CC/HR, NO RESIDUAL NOTED.MIDLINE ON FRANKLIN INTACT & PATENT, NS @ 5CC/HR FOR IVPB MEDS. SUCTIONED VIA TRACH & ORALLY W/ THIN PALE YELLOWISH MUCOUS SMALL AMT. REPOSITIONED W/ HOB ELEVATED.
--- NOTE | 2017-04-01 23:00 | NUR ---
HS CARE DONE. IRRIGATED FLEXISEAL. REPOSITIONED & SUCTIONED.
[2017-04-02] VITALS (23 sets, daily range): BP systolic 101–140; BP diastolic 59–86
[2017-04-02] MEDS: IPRATROPIUM BROMIDE 0.5 MG/2.5 ML NEBU NEB SCH ×4 (01:17→19:12)
[2017-04-02] MEDS: ALBUTEROL SULFATE 2.5 MG/3 ML NEBU NEB SCH ×4 (01:17→19:13)
--- NOTE | 2017-04-02 02:00 | NUR ---
SUCTIONED & REPOSITIONED W/ HOB ELEVATED.
--- NOTE | 2017-04-02 04:00 | NUR ---
AM CARE DONE .TRACH CARE DONE. CLEANED G-TUBE SITE & CHANGED THE DRSG. NO RESIDUAL NOTED.
[2017-04-02] MEDS: IV NORMAL SALINE 250 ML IV PRN (04:57)
[2017-04-02] MEDS: NORMAL SALINE FLUSH 10 ML DISP.SYRIN IV SCH ×3 (05:50→21:59)
[2017-04-02] MEDS: hydrALAZINE HCL 50 MG TABLET GT SCH ×3 (05:50→21:59)
[2017-04-02] MEDS: BLOOD SUGAR DIAGNOSTIC 1 EACH STRIP VI SCH ×4 (05:56→23:33)
[2017-04-02] MEDS: INSULIN REGULAR, HUMAN 300 UNIT/3 ML VIAL SQ PRN ×4 (06:10→23:35)
--- NOTE | 2017-04-02 06:10 | NUR ---
SUCTIONED & REPOSITIONED W/ HOB ELEVATED .
--- NOTE | 2017-04-02 07:30 | NUR ---
RECIEVED PT IN BED WITH HOB UO AT 35DEGREES. APPEARS COMFORTABLE, OPENS EYES SPONTANEOUSLY BUT PT DOES NOT FOLLOW ANY COMMANDS. CONTINUED TO BE FLAT AFFECT. HEMODYNAMICALLY STABLE AT THIS MOMENT.
--- NOTE | 2017-04-02 07:54 | NUR ---
PT RECEIVED ON POWELL VENT, SETTINGS ARE AC 12, Vt 550, PEEP +5, FIO2 30%. SHILEY 8 TRACH IS PATENT AND SECURED WITH TIES. NO SOB NOTED, TOLERATING VENT SETTINGS WELL. INLINE TX GIVEN WITH NO ADVERSE REACTIONS. SUCTIONED SMALL AMOUNT OF PALE YELLOW THICK SECRETIONS. BVM AND BACK UP TRACH AT BEDSIDE. ALARMS ARE ON AND AUDIBLE. WILL CONTINUE TO MONITOR.
[2017-04-02] MEDS: LACTOBACILLUS RHAMNOSUS GG 1 EACH CAPSULE PO SCH ×2 (08:26→20:44)
[2017-04-02] MEDS: PANTOPRAZOLE ORAL SUSPENSION 40 MG SUSPDR.PKT GT SCH (08:26)
[2017-04-02] MEDS: FERROUS SULFATE 300 MG/5 ML LIQUID UDC GT SCH ×2 (08:27→20:40)
[2017-04-02] MEDS: LABETALOL HCL 200 MG TABLET GT SCH ×2 (08:27→20:45)
[2017-04-02] MEDS: Z GUARD REMEDY PASTE 57 GM TUBE TOP SCH ×2 (08:28→20:44)
[2017-04-02] MEDS: AMLODIPINE 5 MG TABLET PO SCH (08:28)
--- NOTE | 2017-04-02 08:30 | NUR ---
SEEN AND EXAMINED BY DR TONG WITH NEW ORDERS. PT IS DOWNGRADED TO [facility] STATUS AND ESTATE MANAGER IS AWARE.
[2017-04-02] MEDS: PROTEIN SUPPLEMENT (PROSTAT) 30 ML LIQUID GT SCH ×2 (08:34→16:46)
--- NOTE | 2017-04-02 09:00 | NUR ---
GOOD ORAL CARE RENDERED, REPOSITION TO SIDE. PT IS TOLERATING HIS FEEDING WITHOUT RESIDUAL BUT CONSTATLY HAVING A LOOSE STOOL. RECTAL TUBE (FLEXI SEAL ) INTACT.
[2017-04-02 09:19] LABS: ABG BASE EXCESS 6.6 mmol/L; ABG HCO3 30.3 mmol/L; ABG PCO2 39.7 mmHg (35.0-45.0); ABG SITE RIGHT RADIAL; ABG TOTAL HEMOGLOBIN 9.3 G/dL (13.5-18.0); COHb 1.3 % (0.5-1.5); MetHb 0.3 % (0.0-1.5); O2Hb 97.2 % (94.0-97.0); VENT MODE VENT - A/C; VT, ABG 550 mL
--- NOTE | 2017-04-02 11:13 | NUR ---
PT'S SISTER AND BROTHER CAME IN TO VISIT. HIS SISTER FAREED EXPRESSED THAT SHE DID NOT WANT HIM TO GO THROOUGH LIVER BIOPSY AND ANY TREATMENTS.
--- NOTE | 2017-04-02 11:30 | NUR ---
SEEN AND EXAMINED BY DR DYER WITH NO ORDERS MADE.
--- NOTE | 2017-04-02 15:30 | NUR ---
SEEN AND EXAMINED BY DR VILLALOBOS, NO ORDERS MADE. DR VILLALOBOS CALLED THE SISTER HERSELF AND DISCUSSED OF THE PTS CONDITION. NO PLANS FOR FURTHER BIOPSY AND TREATMENTS FOR RIGHT NOW.
--- NOTE | 2017-04-02 16:20 | NUR ---
SEEN AND EXAMINED BY DR MCPHERSON WITH NO ORDERS.
[2017-04-02] MEDS: NOVASOURCE RENAL 1000 ML LIQUID GT PRN (16:54)
--- NOTE | 2017-04-02 19:14 | NUR ---
Received pt on Quinonez vent with the following settings of AC-12, Vt-550, PEEP+5, FIO2-30%, trached with Shiley#8 DCT trach, which is in the place and secure. No s/s of respiratory distress noted. Airway care done, pt responded to physical stimuli. In-line HHN tx with 2.5mg Albuterol+0.5mg Atrovent given, pt tolerated well. Resus. bag and back up trach at bedside. Vent and alarms on and audible.
--- NOTE | 2017-04-02 20:00 | NUR ---
RECEIVED PT. OPENS HIS EYES TO VERBAL STIMULI, HAS GOOD EYE CONTACT. TRACH TO VENT W/ SETTINGS OF AC-12, TV-500,FIO2-30%, PEEP-+5, W/ O2 SAT OF 100%. G-TUBE INTACT W/ TUBE FDG OF NOVASOURCE RENAL @ 45CC/HR, NO RESIDUAL NOTED. MIDLINE ON FRANKLIN, IVF NS @ 5CC/HR FOR IVPB MED. FLEXISEAL INTACT W/ LIQUIDISH STOOL. SUCTIONED & REPOSITIONED W/ HOB ELEVATED. NOT IN ANY DISTRESS.
--- NOTE | 2017-04-02 23:00 | NUR ---
HS CARE DONE. ORAL CARE DONE. SUCTIONED & REPOSITIONED W/ HOB ELEVATED.
[2017-04-03] VITALS (21 sets, daily range): BP systolic 98–155; BP diastolic 58–91
[2017-04-03] MEDS: IPRATROPIUM BROMIDE 0.5 MG/2.5 ML NEBU NEB SCH ×4 (01:24→19:38)
[2017-04-03] MEDS: ALBUTEROL SULFATE 2.5 MG/3 ML NEBU NEB SCH ×4 (01:24→19:38)
--- NOTE | 2017-04-03 04:00 | NUR ---
AM CARE DONE.TRACH CARE DONE. G-TUBE SITE CLEANED & DRSG APPLIED. REPOSITIONED ON HIS SIDE W/ HOB ELEVATED.
[2017-04-03 05:06] LABS: BASOPHILS # (AUTO) 0.1 K/uL (0.0-8.0); BASOPHILS % (AUTO) 0.3 % (0.0-2.0); EOSINOPHILS # (AUTO) 0.6 K/uL (0.0-0.7); EOSINOPHILS % (AUTO) 2.5 % (0.0-7.0); HEMATOCRIT 27.5 % (40-50); LYMPHOCYTES # (AUTO) 3.2 K/UL (0.8-4.8); LYMPHOCYTES % (AUTO) 14.1 % (20.5-51.5); MEAN CORPUSCULAR HEMOGLOBIN 27.2 UUG (27.0-31.0); MEAN CORPUSCULAR HGB CONC 33 g/dL (32.0-37.0); MEAN CORPUSCULAR VOLUME 82.6 FL (82.0-92.0); MONOCYTES # (AUTO) 2.1 K/UL (0.1-1.30); MONOCYTES % (AUTO) 9.6 % (0.0-11.0); NEUTROPHILS # (AUTO) 16.4 K/UL (1.8-8.9); NEUTROPHILS % (AUTO) 73.5 % (38.5-71.5); PLATELET COUNT (AUTO) 382 K/UL (150-450); RED BLOOD CELL COUNT(AUTO) 3.33 MIL/UL (4.7-6.1); WHITE BLOOD COUNT (AUTO) 22.4 K/UL (4.0-11.2)
[2017-04-03 05:16] LABS: BAND % (MANUAL) 3 % (0-10); EOSINOPHILS % (MANUAL) 4 % (0-8); LYMPHOCYTES % (MANUAL) 21 % (20-40); MONOCYTES % (MANUAL) 13 % (2-10); NEUTROPHILS % (MANUAL) 58 % (42-75)
[2017-04-03 05:20] LABS: CREATININE 4.2 mg/dL (0.6-1.3); POTASSIUM 3.3 mmol/L (3.5-5.1)
--- NOTE | 2017-04-03 05:28 | NUR ---
Cont. monitor pt on prescribed vent settings. During the shift no respiratory distress noted. Present vent settings pt tolerated well, no changes made. Airway and oral care done. Resus. bag and back up trach at bedside. Vent and alarms on and audible.
[2017-04-03] MEDS: hydrALAZINE HCL 50 MG TABLET GT SCH ×3 (05:33→21:55)
[2017-04-03] MEDS: NORMAL SALINE FLUSH 10 ML DISP.SYRIN IV SCH ×3 (05:34→21:55)
[2017-04-03] MEDS: BLOOD SUGAR DIAGNOSTIC 1 EACH STRIP VI SCH ×4 (05:37→23:45)
[2017-04-03] MEDS: INSULIN REGULAR, HUMAN 300 UNIT/3 ML VIAL SQ PRN ×4 (05:38→23:47)
[2017-04-03] MEDS: IV NORMAL SALINE 250 ML IV PRN (05:40)
--- NOTE | 2017-04-03 06:00 | NUR ---
V/S STABLE. NOT IN ANY DISTRESS.
--- NOTE | 2017-04-03 07:30 | NUR ---
Report received.Pt remains unresponsive.No s/s of pain,discomfort.Tracheostomy tube intact,patent,connected to ventilator.No SOB noted.Sinus Tachycardia on monitor.GT feeding novasourse renal to GT tolerated well.Turned,repositioned.Will continue to monitor.
--- NOTE | 2017-04-03 08:15 | NUR ---
PATIENT RECEIVED ON POWELL VENT W/ THE FOLLOWING SETTINGS: AC 12, Vt 550, PEEP +5, FIO2 30%. PATIENT IS TRACHED WITH SHILEY #8 DCT. HHN INLINE TX GIVEN AND TOLERATED WELL WITH NO ADVERSE REACTIONS NOTED. SUCTIONED SMALL AMOUNT OF WHITE AND YELLOW SECRETIONS. TRACH IS PATENT AND PROPERLY SECURED WITH TRACH TIES. AMBU BAG AND SPARE TRACH IS BY BEDSIDE. HME CHANGED. VENT ALARMS CHECKED AND THEY ARE ON AND AUDIBLE. VENT IS PLUGGED IN THE RED EMERGENCY OUTLET. TOLERATING CURRENT VENT SETTINGS WELL AT THIS TIME. NO SOB NOTED. WILL CONTINUE TO MONITOR.
[2017-04-03] MEDS: FERROUS SULFATE 300 MG/5 ML LIQUID UDC GT SCH ×2 (08:44→20:02)
[2017-04-03] MEDS: PROTEIN SUPPLEMENT (PROSTAT) 30 ML LIQUID GT SCH ×2 (08:45→17:22)
[2017-04-03] MEDS: PANTOPRAZOLE ORAL SUSPENSION 40 MG SUSPDR.PKT GT SCH (08:46)
[2017-04-03] MEDS: LACTOBACILLUS RHAMNOSUS GG 1 EACH CAPSULE PO SCH ×2 (08:46→20:03)
[2017-04-03] MEDS: AMLODIPINE 5 MG TABLET PO SCH (08:46)
[2017-04-03] MEDS: Z GUARD REMEDY PASTE 57 GM TUBE TOP SCH ×2 (08:47→20:03)
[2017-04-03] MEDS: LABETALOL HCL 200 MG TABLET GT SCH ×2 (08:48→20:03)
--- NOTE | 2017-04-03 11:00 | NUR ---
SEEN,EXAMINED BY .
[2017-04-03 13:46] LABS: *BILIRUBIN,URIN NEGATIVE (NEGATIVE); *BLOOD, URINE Trace-intact (NEGATIVE); *CLARITY,URINE CLEAR (CLEAR); *COLOR,URINE YELLOW (YELLOW); *KETONES,URINE NEGATIVE (NEGATIVE); *UROBILINOGEN,URINE 0.2 E.U./dl (NORMAL); LEUKOCYTE ESTERASE ,URINE NEGATIVE (NEGATIVE); NITRITE, URINE NEGATIVE (NEGATIVE); UGLUCOSE TRACE (NEGATIVE)
[2017-04-03 13:48] LABS: *PROTEIN,URINE 3+ (NEGATIVE)
[2017-04-03 13:55] LABS: BACTERIA,URINE MODERATE /HPF (NONE SEEN); SQUAMOUS EPITHELIAL CELL,UR MODERATE /HPF (NONE SEEN)
[2017-04-03] MEDS: CEFEPIME HCL 0.5 G in IV DEXTROSE 5% 50 ML IV SCH (14:16)
[2017-04-03 15:07] LABS: *HCV QUANT 1347290 IU/mL (.)
--- NOTE | 2017-04-03 15:40 | NUR ---
Hemodialysis in progress at bedside.
[2017-04-03] MEDS ORDERED: ALBUMIN HUMAN 25% 100 ML IV PRN (16:00)
--- NOTE | 2017-04-03 18:44 | NUR ---
PT TRANSFERED TO ROOM 212 ACCOMPANY BY RT.PT TOLERATED WELL.
[2017-04-03] MEDS: EPOETIN ALFA 10,000 UNITS/ML VIAL SQ PRN (19:17)
--- NOTE | 2017-04-03 20:00 | NUR ---
Stable on vent. Appears comfortable on current vent settings. No weaning since adm. Stable rhythm and VS. Nursing comfort measures observed. Contact isolation maintained. Please see [facility] flowsheet for full assessment and clinical data.
[2017-04-03] MEDS: NOVASOURCE RENAL 1000 ML LIQUID GT PRN (23:11)
[2017-04-04 00:05] VITALS: BP 119/75
--- NOTE | 2017-04-04 00:24 | NUR ---
TRACHED PATIENT RECEIVED ON POWELL VENT WITH PRESCRIBED SETTINGS OF AC 12, Vt 550, PEEP +5, FIO2 30%. 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 NO SIGNS OF RESPIRATORY DISTRESS NOTED AT THIS TIME. ORAL CARE AND TRACH CARE RENDERED WITHOUT COMPLICATIONS. INLINE HHN TREATMENTS ADMINISTERED AND TOLERATED WELL. NO ADVERSE REACTIONS. SUCTIONED SMALL AMOUNTS OF THICK PALE YELLOW SECRETIONS. CONTINUOUS PULSE OX IN ROOM. AMBU BAG AND SPARE TRACH AT BEDSIDE.
[2017-04-04] MEDS: ALBUTEROL SULFATE 2.5 MG/3 ML NEBU NEB SCH ×4 (01:13→19:17)
[2017-04-04] MEDS: IPRATROPIUM BROMIDE 0.5 MG/2.5 ML NEBU NEB SCH ×4 (01:13→19:17)
[2017-04-04 04:00] VITALS: BP 115/74
[2017-04-04] MEDS: BLOOD SUGAR DIAGNOSTIC 1 EACH STRIP VI SCH ×3 (05:25→17:35)
[2017-04-04] MEDS: NORMAL SALINE FLUSH 10 ML DISP.SYRIN IV SCH ×3 (05:26→22:04)
[2017-04-04] MEDS: Z GUARD REMEDY PASTE 57 GM TUBE TOP PRN (05:26)
[2017-04-04] MEDS: INSULIN REGULAR, HUMAN 300 UNIT/3 ML VIAL SQ PRN ×3 (05:28→17:43)
[2017-04-04] MEDS: hydrALAZINE HCL 50 MG TABLET GT SCH ×3 (05:46→21:59)
--- NOTE | 2017-04-04 06:00 | NUR ---
Uneventful, restful night. Continues to tolerate tube feedings well. Aspiration precautions maintained. Noted more oral secretions than trach, suctioned frequently. Stable VS and rhythm. No apparent acute distress noted. Please see [facility] flowsheet for trends and clinical data.
--- NOTE | 2017-04-04 07:30 | NUR ---
RECIEVED PT LYING IN BED, HOB UP 35DEGREES. OPENS EYES BUT DOES NOT FOLLOW COMMANDS. HEMODYNAMICALLY STABLE. HR IS SR, NO ECTOPY. MIDLINE LINE FRANKLIN IS CLEAN AND INTACT. TRACH SHILEY 8 CLEAN AND DRY. VENT SETTING IS STILL THE SAME. NO APPARENT RESPIRATORY DISTRESS NOTED. SUCTION MODERATE AMOUNT OF THIN WHITISH SECRETIONS..AFEBRILE.
[2017-04-04 08:12] VITALS: BP 139/62
--- NOTE | 2017-04-04 09:00 | NUR ---
SEEN AND EXAMINED BY DR GAFFNEY WITH NEW ORDERS. PT TOLERATING TUBE FEEDING WELL. PT HAS CONTINOUS LOOSE BM, RECTAL TUBE IN PLACE. REPOSITION AT FREQUENT INTERVALS.
[2017-04-04] MEDS: PROTEIN SUPPLEMENT (PROSTAT) 30 ML LIQUID GT SCH ×2 (09:12→17:00)
[2017-04-04] MEDS: PANTOPRAZOLE ORAL SUSPENSION 40 MG SUSPDR.PKT GT SCH (09:13)
[2017-04-04] MEDS: FERROUS SULFATE 300 MG/5 ML LIQUID UDC GT SCH ×2 (09:13→21:58)
[2017-04-04] MEDS: LABETALOL HCL 200 MG TABLET GT SCH ×2 (09:14→21:59)
[2017-04-04] MEDS: AMLODIPINE 5 MG TABLET PO SCH (09:14)
[2017-04-04] MEDS: CEFEPIME HCL 0.5 G in IV DEXTROSE 5% 50 ML IV SCH (09:17)
[2017-04-04] MEDS: LACTOBACILLUS RHAMNOSUS GG 1 EACH CAPSULE PO SCH ×2 (09:17→21:59)
[2017-04-04] MEDS: Z GUARD REMEDY PASTE 57 GM TUBE TOP SCH ×2 (09:18→22:00)
--- NOTE | 2017-04-04 09:30 | NUR ---
RECEIVED PT TRACHED ON POWELL VENT WITH THE FOLLOWING SETTINGS THAT ARE CHARTED ON THE MECHANICAL VENT NOTES. SX'D SMALL AMOUNTS OF WHITE/YELLOWISH SECRETIONS. TRACH IS SECURED. AIR WAY IS PATENT. INLINE TX TOLERATED WELL WITH NO ADVERSE REACTIONS NOTED. BMV AND BACK UP TRACH IS BY BEDSIDE. VENT ALARMS ARE ON AND LOUD. DAILY HME CHANGED. VENT IS PLUGGED IN RED OUTLET. NO SOB NOTED AT THIS TIME. WILL CONTINUE TO MONITOR PATIENT THROUGHOUT SHIFT.
[2017-04-04 11:34] VITALS: BP 118/65
--- NOTE | 2017-04-04 15:00 | NUR ---
SEEN AND EXAMINED BY DR DAVID, NO ORDERS MADE. WOUND DRESSING DONE AND PM CARE GIVEN. CONDITION IS UNCHANGED.
[2017-04-04 16:18] VITALS: BP 122/76
--- NOTE | 2017-04-04 17:30 | NUR ---
TRACHE CARE RENDERED. VSS STABLE.
[2017-04-04 19:00] VITALS: BP 110/62
--- NOTE | 2017-04-04 19:30 | NUR ---
nsg: pt received in bed, no acute distress noted. tolerating current vent setting with O2 sat of 100%. tele, ST hr 102-106. tolerating TF well, no residual. has midline on right upper arm with ns as tko. right subclavian permacath in place. f/c draining myriam colored urine but oliguric. on specialty mattress. HOB elevated 45 degrees. cont to monitor.
--- NOTE | 2017-04-04 20:11 | NUR ---
Patient received on Quinonez settings AC 12, VT 550, PEEP+5 and FIO2-30%. No resp. distress noted. Shiley 8 is patent and secure; Backup Shiley 8 and BVM at bedside. Pt to be monitored throughout the shift, PRN SX and adm'd resp neb txs per MD orders. Quinonez alarm parameters have been checked and remain audible at this time. Pt placed back on PEEP+5 per RN AB request; she was made aware and notified. Addendum: 04/05/17 at 1942 by SHOAIB SANDERSON RT Disregard "Pt placed back on PEEP+5 per RN AB request; she was made aware and notified."
[2017-04-04] MEDS: ACETAMINOPHEN 650 MG/20.3 ML LIQUID UDC GT PRN (21:58)
--- NOTE | 2017-04-04 22:00 | NUR ---
NSG: temp 100.3F ORAL, NOTIFIED KOBE FLETCHER FOR ID. WILL CONFIRM WITH DR. MCPHERSON IF OK TO GIVE TYLENOL AT THIS TIME.
--- NOTE | 2017-04-04 22:35 | NUR ---
NSG: received ok fr JUSTINE np to give tylenol for fever of 100.3f oral. will cont to monitor.
[2017-04-04] MEDS: INSULIN DETEMIR 300 UNIT/3 ML CARTRIDGE SQ SCH (22:46)
[2017-04-04] MEDS ORDERED: MEROPENEM 0.5 G in IV NORMAL SALINE 50 ML IV SCH (23:00)
[2017-04-05 00:13] VITALS: BP 103/65
[2017-04-05] MEDS ORDERED: MEROPENEM 500 MG VIAL IV ONE (00:27)
[2017-04-05] MEDS: ALBUTEROL SULFATE 2.5 MG/3 ML NEBU NEB SCH ×4 (00:36→19:00)
[2017-04-05] MEDS: IPRATROPIUM BROMIDE 0.5 MG/2.5 ML NEBU NEB SCH ×4 (00:37→19:01)
[2017-04-05] MEDS: BLOOD SUGAR DIAGNOSTIC 1 EACH STRIP VI SCH ×4 (01:04→18:21)
[2017-04-05] MEDS: INSULIN REGULAR, HUMAN 300 UNIT/3 ML VIAL SQ PRN ×3 (01:05→18:23)
--- NOTE | 2017-04-05 03:30 | NUR ---
nsg: flexi seal leaked and popped out. inserted new one. also, changed wound dressing. tolerated well.
[2017-04-05 05:05] VITALS: BP 112/71
--- NOTE | 2017-04-05 05:19 | NUR ---
Patient remains on Viasys Quinonez with no changes made to the ventilator settings. No resp. distress noted throughout the shift. Shiley 8 remains patent and secure; B/U Shiley 8 & BVM at bedside. Pt routinely sx'd and appeared to tolerate resp neb txs and vent settings well. Quinonez alarm parameters have been checked and remain audible.
--- NOTE | 2017-04-05 06:00 | NUR ---
nsg: all needs attended. afebrile. kept clean and dry. cont to monitor.
[2017-04-05] MEDS: NORMAL SALINE FLUSH 10 ML DISP.SYRIN IV SCH ×3 (06:29→21:08)
--- NOTE | 2017-04-05 06:30 | NUR ---
nsg: unable to give hydralazine via gt, pyxis error. will endorse to am nurse.
[2017-04-05 07:47] LABS: BASOPHILS % (AUTO) 0.1 % (0.0-2.0); EOSINOPHILS # (AUTO) 0.5 K/uL (0.0-0.7); EOSINOPHILS % (AUTO) 2.8 % (0.0-7.0); HEMATOCRIT 25.7 % (40-50); HEMOGLOBIN 8.6 G/DL (14.0-18.0); LYMPHOCYTES # (AUTO) 2.6 K/UL (0.8-4.8); LYMPHOCYTES % (AUTO) 13.9 % (20.5-51.5); MEAN CORPUSCULAR HEMOGLOBIN 27.5 UUG (27.0-31.0); MEAN CORPUSCULAR HGB CONC 34 g/dL (32.0-37.0); MEAN CORPUSCULAR VOLUME 82.3 FL (82.0-92.0); MONOCYTES # (AUTO) 2.3 K/UL (0.1-1.30); MONOCYTES % (AUTO) 12.6 % (0.0-11.0); NEUTROPHILS % (AUTO) 70.6 % (38.5-71.5); PLATELET COUNT (AUTO) 387 K/UL (150-450); RED BLOOD CELL COUNT(AUTO) 3.13 MIL/UL (4.7-6.1); WHITE BLOOD COUNT (AUTO) 18.4 K/UL (4.0-11.2)
--- NOTE | 2017-04-05 08:00 | NUR ---
Report received.Pt remains unresponsive.No s/s of pain,discomfort.Respiration even,unlabored.Trach tube intact,patent,connected to vent.No SOB noted.SR on telemetry.Gt feeding tolerated well.No residual.F/C,Flexiceal intact.Turned,repositioned.Will continue to monitor.
[2017-04-05 08:03] VITALS: BP 136/77
[2017-04-05 08:12] LABS: BILIRUBIN,TOTAL 0.3 mg/dL (0.2-1.0); CREATININE 5.1 mg/dL (0.6-1.3); MAGNESIUM 1.9 mg/dL (1.8-2.4); PHOSPHOROUS 5.3 mg/dL (2.5-4.9); POTASSIUM 3.5 mmol/L (3.5-5.1); TOTAL PROTEIN, SERUM 8.1 g/dL (6.4-8.2)
[2017-04-05] MEDS ORDERED: VANCOMYCIN IV 1 G in PREMIXED 0 EACH IV ONE (08:30)
--- NOTE | 2017-04-05 08:37 | NUR ---
RESUMED CARE POST AM REPORT. PATIENT IS VENT DEPENDENT ON CURRENT MECHANICAL VENTILATOR SETTINGS OF AC 12, VT 550,30% FIO2 AND PEEP 5. AWAKE AND RESPONSIVE WITH NO DISTRESS SATURATING 99-100% THIS MORNING. IN LINE TREATMENT GIVEN WITH NO COMPLICATION. SUCTIONED FOR MODERATE AMOUNT OF THICK WHITISH SECRETIONS. ORAL CARE GIVEN. CHANGED HUMIDIFIER FILTER. NO NEW ORDER RECEIVED.
[2017-04-05] MEDS: FERROUS SULFATE 300 MG/5 ML LIQUID UDC GT SCH ×2 (08:47→21:03)
[2017-04-05] MEDS: PANTOPRAZOLE ORAL SUSPENSION 40 MG SUSPDR.PKT GT SCH (08:48)
[2017-04-05] MEDS: AMLODIPINE 5 MG TABLET PO SCH (08:48)
[2017-04-05] MEDS: hydrALAZINE HCL 50 MG TABLET GT SCH ×3 (08:48→22:00)
[2017-04-05] MEDS: LACTOBACILLUS RHAMNOSUS GG 1 EACH CAPSULE PO SCH ×2 (08:48→21:04)
[2017-04-05] MEDS: PROTEIN SUPPLEMENT (PROSTAT) 30 ML LIQUID GT SCH ×2 (08:49→17:00)
[2017-04-05] MEDS: LABETALOL HCL 200 MG TABLET GT SCH ×2 (08:50→21:07)
[2017-04-05] MEDS: Z GUARD REMEDY PASTE 57 GM TUBE TOP SCH ×2 (08:50→21:07)
[2017-04-05 11:39] LABS: BAND % (MANUAL) 2 % (0-10); EOSINOPHILS % (MANUAL) 3 % (0-8); LYMPHOCYTES % (MANUAL) 18 % (20-40); MONOCYTES % (MANUAL) 9 % (2-10); NEUTROPHILS % (MANUAL) 68 % (42-75)
[2017-04-05 11:55] VITALS: BP 119/63
--- NOTE | 2017-04-05 12:00 | NUR ---
Seen,examined by with new orders.
--- NOTE | 2017-04-05 15:00 | NUR ---
Pt family at bedside,updated with pt status.
[2017-04-05 16:06] VITALS: BP 104/53
--- NOTE | 2017-04-05 16:13 | NUR ---
Clinical Pharmacy Note: Vancomycin pharmacy to Dose Subjective: To start vancomycin in this 71 yo gentleman for sepsis of unknown source. Patient is on HD Objective: height 69 in weight 124 lbs BUN 81 Scr 4.2 (on HD) Wbc 18.4 Temp 99.4 Assessment/Plan Patient will be dosed 1gm dose today. Will order next level pre-HD per HD protocol and dose as appropriate.. Will continue to monitor and follow daily
[2017-04-05] MEDS ORDERED: GENTAMICIN SULFATE INJ 120 MG in IV DEXTROSE 5% 100 ML IV SCH ×2 (18:15→20:00)
[2017-04-05] MEDS: EPOETIN ALFA 10,000 UNITS/ML VIAL SQ PRN (18:21)
--- NOTE | 2017-04-05 18:56 | NUR ---
PHARMACY CLINICAL NOTES ( GENTAMICIN DOSING) Subjective: 71 yo male , on hemodialysis DX: Pnuemonia on Gentamicin and cefepime for gram negative coverage. Objective: Bun/scr= 90/5.1 wbc 18.4, temp 98.6; dosing wt 124 lbs endotrachial wash resulted in Psedomonas Aeruginosa, and Klebsiella pneumoniae. Blood cx result negative still preliminary Assessment/Plan:patient was dialyzed today will dose Gentamicin 120 mg (~ 2 mg/kg) x 1 to be administered post dialysis. Plan to order pre-dialysis level. Natalia to have level 2-3 mcg/ml. Will follow up and adjust dose as necessary.
[2017-04-05 19:00] VITALS: BP 120/73
--- NOTE | 2017-04-05 19:40 | NUR ---
Patient received on Viasys Quinonez settings A/C 12, VT 550, PEEP +5 and FIO2-30%. No resp. distress noted. Shiley 8 is patent and secure; Backup Shiley 8 and resusc. bag at bedside. Pt to be monitored throughout the shift, PRN SX and adm'd resp neb txs per MD orders. Quinonez alarm parameters have been checked and remain audible at this time.
[2017-04-05] MEDS ORDERED: CEFEPIME HCL 1 G in IV DEXTROSE 5% 50 ML IV SCH (21:00)
[2017-04-05] MEDS: INSULIN DETEMIR 300 UNIT/3 ML CARTRIDGE SQ SCH (21:11)
[2017-04-05] MEDS ORDERED: CEFEPIME HCL 0.5 G in IV DEXTROSE 5% 50 ML IV SCH (22:00)
[2017-04-06] VITALS (8 sets, daily range): BP systolic 99–120; BP diastolic 60–81
[2017-04-06] MEDS: BLOOD SUGAR DIAGNOSTIC 1 EACH STRIP VI SCH ×5 (00:04→23:55)
[2017-04-06] MEDS: INSULIN REGULAR, HUMAN 300 UNIT/3 ML VIAL SQ PRN ×5 (00:06→23:56)
[2017-04-06] MEDS: ALBUTEROL SULFATE 2.5 MG/3 ML NEBU NEB SCH ×4 (00:55→18:59)
[2017-04-06] MEDS: IPRATROPIUM BROMIDE 0.5 MG/2.5 ML NEBU NEB SCH ×4 (00:56→18:59)
--- NOTE | 2017-04-06 01:06 | NUR ---
Low-grade fever noted. Rectal temp 100.5F. Cool bath provided, now trending down. Continue to monitor.
[2017-04-06] MEDS: NORMAL SALINE FLUSH 10 ML DISP.SYRIN IV SCH ×3 (05:40→21:52)
[2017-04-06] MEDS: hydrALAZINE HCL 50 MG TABLET GT SCH ×3 (05:42→21:53)
[2017-04-06] MEDS: IV NORMAL SALINE 250 ML IV PRN (05:44)
[2017-04-06] MEDS: NOVASOURCE RENAL 1000 ML LIQUID GT PRN (05:45)
[2017-04-06 07:16] LABS: CREATININE 4.3 mg/dL (0.6-1.3); PHOSPHOROUS 4.7 mg/dL (2.5-4.9); POTASSIUM 4.5 mmol/L (3.5-5.1)
[2017-04-06] MEDS: LACTOBACILLUS RHAMNOSUS GG 1 EACH CAPSULE PO SCH ×2 (07:55→20:46)
[2017-04-06] MEDS: FERROUS SULFATE 300 MG/5 ML LIQUID UDC GT SCH ×2 (07:55→20:46)
[2017-04-06] MEDS: PANTOPRAZOLE ORAL SUSPENSION 40 MG SUSPDR.PKT GT SCH (07:55)
[2017-04-06] MEDS: PROTEIN SUPPLEMENT (PROSTAT) 30 ML LIQUID GT SCH ×2 (07:55→17:32)
[2017-04-06] MEDS: Z GUARD REMEDY PASTE 57 GM TUBE TOP SCH ×2 (08:08→20:48)
[2017-04-06] MEDS: LABETALOL HCL 200 MG TABLET GT SCH ×2 (08:08→20:47)
[2017-04-06] MEDS: AMLODIPINE 5 MG TABLET PO SCH (08:08)
--- NOTE | 2017-04-06 08:30 | NUR ---
Pt rec'd on Quinonez vent AC12 VT550 PEEP+5 30%FiO2. Venting via Shiley 8DCT trach tube, in place, patent and secure. Pt tolerating vent settings well, no sob/distress noted at this time. No weaning ordered for today. Sxn'ing PRN. Vent alarms audible, checked and reset.Will cont to monitor and report any changes
[2017-04-06 09:04] LABS: BASOPHILS # (AUTO) 0.1 K/uL (0.0-8.0); BASOPHILS % (AUTO) 0.3 % (0.0-2.0); EOSINOPHILS # (AUTO) 0.5 K/uL (0.0-0.7); EOSINOPHILS % (AUTO) 2.9 % (0.0-7.0); HEMATOCRIT 24.6 % (40-50); HEMOGLOBIN 8.2 G/DL (14.0-18.0); LYMPHOCYTES # (AUTO) 2.7 K/UL (0.8-4.8); LYMPHOCYTES % (AUTO) 14.7 % (20.5-51.5); MEAN CORPUSCULAR HEMOGLOBIN 27.7 UUG (27.0-31.0); MEAN CORPUSCULAR HGB CONC 33 g/dL (32.0-37.0); MEAN CORPUSCULAR VOLUME 83.5 FL (82.0-92.0); MONOCYTES # (AUTO) 2.1 K/UL (0.1-1.30); MONOCYTES % (AUTO) 11.1 % (0.0-11.0); NEUTROPHILS # (AUTO) 13.1 K/UL (1.8-8.9); PLATELET COUNT (AUTO) 340 K/UL (150-450); RED BLOOD CELL COUNT(AUTO) 2.95 MIL/UL (4.7-6.1); WHITE BLOOD COUNT (AUTO) 18.5 K/UL (4.0-11.2)
--- NOTE | 2017-04-06 11:43 | NUR ---
Clinical Pharmacy Note: Vancomycin pharmacy to Dose Subjective: To continue gentamicin in this 71 yo gentleman for sepsis (also on cefepime- Per ID note for [facility]). Patient is on HD Objective: height 69 in weight 124 lbs BUN 70 Scr 4.3 Wbc 18.5 Temp 99.2 Gentamicin pre- HD level: 0.3 Resp culture + PSA sens to gent Assessment/Plan HD has been scheduled for today. Since pre-HD gent level is 0.3 mcg/ml, will give gentamicin 60mg (~1mg/kg) IVPB x1 today post HD. Will order next level pre-HD per HD protocol and dose as appropriate.. Will continue to monitor and follow daily
--- NOTE | 2017-04-06 13:32 | NUR ---
Apresoline PO medication held this afternoon in light of dialysis treatment.
--- NOTE | 2017-04-06 13:46 | NUR ---
business services associate at the bedside and dialysis treatment started.
--- NOTE | 2017-04-06 14:36 | NUR ---
1 unit of PRBC started and given with dialysis. Will closely monitor for any signs of adverse reaction.
[2017-04-06] MEDS: EPOETIN ALFA 10,000 UNITS/ML VIAL SQ PRN (15:20)
--- NOTE | 2017-04-06 15:29 | NUR ---
1 unit of PRBC completed. Pt tolerated blood transfusion well and no adverse reactions noted.
[2017-04-06 16:02] LABS: *BILIRUBIN,URIN NEGATIVE (NEGATIVE); *BLOOD, URINE 1+ (NEGATIVE); *CLARITY,URINE CLEAR (CLEAR); *COLOR,URINE YELLOW (YELLOW); *KETONES,URINE NEGATIVE (NEGATIVE); *UROBILINOGEN,URINE 0.2 E.U./dl (NORMAL); LEUKOCYTE ESTERASE ,URINE NEGATIVE (NEGATIVE); NITRITE, URINE NEGATIVE (NEGATIVE); UGLUCOSE NEGATIVE (NEGATIVE)
[2017-04-06 16:03] LABS: *PROTEIN,URINE 3+ (NEGATIVE)
[2017-04-06 16:05] LABS: WBC,URINE 0-3 /HPF (0-3)
[2017-04-06 16:06] LABS: BACTERIA,URINE MANY /HPF (NONE SEEN); SQUAMOUS EPITHELIAL CELL,UR FEW /HPF (NONE SEEN)
--- NOTE | 2017-04-06 16:30 | NUR ---
Dialysis completed. 2.5L of hemodialysis fluid removed. Pt stable and nad noted upon completion of dialysis treatment.
[2017-04-06] MEDS ORDERED: GENTAMICIN SULFATE INJ 60 MG in IV DEXTROSE 5% 50 ML IV ONE (17:00)
--- NOTE | 2017-04-06 19:30 | NUR ---
End of shift: Pt resting and dozing off in bed with fall precautions and safety measures maintained. Pt on Shiley #8 with continuous ventilation settings as follows: AC-12, TV-550ml, 30% FiO2, and PEEP-5. playground monitor and ventilation alarms working properly wnl. IVF tko. Fernandez catheter intact and draining properly. Flexi seal intact and draining properly. DVT pumps on bilaterally. Pt stable and nad noted.
--- NOTE | 2017-04-06 20:00 | NUR ---
Appears comfortable on current vent settings. No weaning on vent. Noted more oral than trach secretions. Post dialysis today. Tube feedings well tolerated. Aspiration precautions observed. Nursing comfort measures and contact isolation precautions maintained at all times. Please see [facility] flowsheet for full assessment and clinical data.
--- NOTE | 2017-04-06 20:16 | NUR ---
PATIENT RECEIVED ON POWELL VENT WITH THE FOLLOWING SETTINGS THAT ARE CHARTED ON THE MECHANICAL VENT NOTES. PATIENT IS TRACHED WITH SHILEY 8. SUCTIONED SMALL AMOUNTS OF WHITE AND YELLOW SECRETIONS. TRACH IS PROPERLY SECURED WITH TRACH TIES. AMBU BAG AND SPARE TRACH IS BY BEDSIDE. HHN INLINE TX ADMINISTERED PER MD ORDERS AND TOLERATED WELL WITH NO ADVERSE REACTIONS NOTED. VENT ALARMS CHECKED AND THEY ARE ON AND AUDIBLE. WILL CHANGED HME PRN NEXT VENT CHECK. VENT IS PLUGGED IN RED EMERGENCY OUTLET. PATIENT IS TOLERATING CURRENT VENT SETTINGS WELL WITH NO SOB NOTED AT THIS TIME. WILL CONTINUE TO MONITOR.
[2017-04-06] MEDS: CEFEPIME HCL 0.5 G in IV DEXTROSE 5% 50 ML IV SCH (20:46)
[2017-04-06] MEDS: INSULIN DETEMIR 300 UNIT/3 ML CARTRIDGE SQ SCH (20:55)
[2017-04-07] VITALS: BP 105/68
[2017-04-07] MEDS: IV NORMAL SALINE 250 ML IV PRN (00:03)
[2017-04-07] MEDS: ALBUTEROL SULFATE 2.5 MG/3 ML NEBU NEB SCH ×4 (00:52→19:02)
[2017-04-07] MEDS: IPRATROPIUM BROMIDE 0.5 MG/2.5 ML NEBU NEB SCH ×4 (00:52→19:01)
[2017-04-07 04:00] VITALS: BP 106/65
[2017-04-07] MEDS: hydrALAZINE HCL 50 MG TABLET GT SCH ×3 (05:40→21:21)
[2017-04-07] MEDS: NORMAL SALINE FLUSH 10 ML DISP.SYRIN IV SCH ×3 (05:40→21:21)
[2017-04-07] MEDS: BLOOD SUGAR DIAGNOSTIC 1 EACH STRIP VI SCH ×3 (05:41→17:42)
[2017-04-07] MEDS: INSULIN REGULAR, HUMAN 300 UNIT/3 ML VIAL SQ PRN ×3 (05:43→17:45)
--- NOTE | 2017-04-07 07:30 | NUR ---
PATIENT RECEIVED ON CONTINUOUS MECHANICAL VENTILATION WITH TRACH PROPERLY SECURED AND INTACT. AIRWAY PATENT. PATIENT TOLERATING PRESCRIBED VENTILATOR SETTINGS FINE SHOWING NO EVIDENCE OF RESPIRATORY DISTRESS. BREATH SOUNDS RHONCHI. PRN TRACHEAL SUCTIONED PERFORMED AND HAD MODERATE AMOUNT OF OFF WHITE YELLOWISH SEMI THICK SECRETIONS. PATIENT POSITIONED SEMI CALDERON WITH HEAD OF THE BED ELEVATED 35-45 DEGREE ANGLE. VENT ALARMS SET,AUDIBLE, AND WORKING. VENT PLUGGED INTO RED OUTLET. PT APPEARS COMFORTABLE.
[2017-04-07 07:57] LABS: BILIRUBIN,TOTAL 0.4 mg/dL (0.2-1.0); CREATININE 4.1 mg/dL (0.6-1.3); MAGNESIUM 1.8 mg/dL (1.8-2.4); PHOSPHOROUS 4.6 mg/dL (2.5-4.9); POTASSIUM 4.1 mmol/L (3.5-5.1); TOTAL PROTEIN, SERUM 8.5 g/dL (6.4-8.2)
[2017-04-07 08:11] LABS: BASOPHILS % (AUTO) 0.2 % (0.0-2.0); EOSINOPHILS # (AUTO) 0.4 K/uL (0.0-0.7); LYMPHOCYTES # (AUTO) 2.7 K/UL (0.8-4.8); LYMPHOCYTES % (AUTO) 13.1 % (20.5-51.5); MEAN CORPUSCULAR HEMOGLOBIN 28.2 UUG (27.0-31.0); MEAN CORPUSCULAR HGB CONC 34 g/dL (32.0-37.0); MEAN CORPUSCULAR VOLUME 82.6 FL (82.0-92.0); MONOCYTES # (AUTO) 2.1 K/UL (0.1-1.30); MONOCYTES % (AUTO) 10.3 % (0.0-11.0); NEUTROPHILS # (AUTO) 15.5 K/UL (1.8-8.9); NEUTROPHILS % (AUTO) 74.4 % (38.5-71.5); PLATELET COUNT (AUTO) 387 K/UL (150-450)
[2017-04-07 08:31] LABS: RED BLOOD CELL COUNT(AUTO) 3.55 MIL/UL (4.7-6.1); WHITE BLOOD COUNT (AUTO) 20.7 K/UL (4.0-11.2)
[2017-04-07 08:32] LABS: HEMATOCRIT 29.3 % (40-50)
[2017-04-07] MEDS: PROTEIN SUPPLEMENT (PROSTAT) 30 ML LIQUID GT SCH ×2 (08:45→16:19)
[2017-04-07] MEDS: FERROUS SULFATE 300 MG/5 ML LIQUID UDC GT SCH ×2 (08:45→21:04)
[2017-04-07] MEDS: LACTOBACILLUS RHAMNOSUS GG 1 EACH CAPSULE PO SCH ×2 (08:45→21:04)
[2017-04-07] MEDS: PANTOPRAZOLE ORAL SUSPENSION 40 MG SUSPDR.PKT GT SCH (08:45)
[2017-04-07] MEDS: Z GUARD REMEDY PASTE 57 GM TUBE TOP SCH ×2 (08:46→21:06)
[2017-04-07] MEDS: AMLODIPINE 5 MG TABLET PO SCH (08:51)
[2017-04-07] MEDS: LABETALOL HCL 200 MG TABLET GT SCH ×2 (08:51→21:06)
[2017-04-07 09:18] LABS: ABG BASE EXCESS 3.1 mmol/L; ABG HCO3 27.1 mmol/L; ABG PCO2 39.2 mmHg (35.0-45.0); ABG PH 7.458 (7.350-7.450); ABG PO2 125.3 mmHg (75.0-100.0); ABG SITE RIGHT RADIAL; ABG TOTAL HEMOGLOBIN 12.6 G/dL (13.5-18.0); COHb 1.2 % (0.5-1.5); MetHb 0.3 % (0.0-1.5); O2Hb 97.4 % (94.0-97.0); VENT MODE VENT - A/C; VT, ABG 550 mL
--- NOTE | 2017-04-07 10:38 | NUR ---
Clinical Pharmacy Note: Vancomycin pharmacy to Dose Subjective: To continue gentamicin in this 71 yo gentleman for sepsis (also on cefepime- Per ID note for synergy). Patient is on HD Objective: height 69 in weight 124 lbs BUN 70 Scr 4.1 Wbc 20.7 Temp 99 Resp culture + PSA sens to gent Assessment/Plan No HD has been scheduled for today. Thus, no dose of gentamicin shall be given today. Will order next level pre-HD per HD protocol and dose as appropriate.. Will continue to monitor and follow daily
[2017-04-07 12:08] VITALS: BP 102/65
[2017-04-07 16:08] VITALS: BP 98/67
--- NOTE | 2017-04-07 18:42 | NUR ---
End of shift: Pt resting and dozing off in bed with fall precautions and safety measures maintained. Pt on Shiley #8 with continuous ventilation settings as follows: AC-12, TV-550ml, 30% FiO2, and PEEP-5. bus driver/monitor and ventilation alarms working properly wnl. IVF tko. Fernandez catheter intact and draining properly. Flexi seal intact and draining properly. DVT pumps on bilaterally. Pt stable and nad noted.
--- NOTE | 2017-04-07 19:00 | NUR ---
Bedside reporting with GEO Otto. Patient on bed, quite restless, HOB elevated, O2 sat checked 99% on 2L via NC. Continue on Amiodarone drip as ordered on FRANKLIN PICC line covered with gauze. F/C intact draining cranberry colored output. Left hand mitten uin used to avoid pulling of PICC lines and tubings. Safety measures and fall precaution maintained. Continue care as planned. Addendum: 04/07/17 at 2130 by RAMONA OATES RN Wrong patient Addendum: 04/07/17 at 213 by RAMONA OATES RN Wrong patient
--- NOTE | 2017-04-07 19:04 | NUR ---
Received pt on Quinonez vent with the following settings of AC-12, Vt-550, PEEP+5, FIO2-30%, trached with Shiley#8 DCT trach, which is in the place and secure. No s/s of respiratory distress noted. Airway care done, pt responded to physical stimuli. In-line HHN tx with 2.5mg Albuterol+0.5mg Atrovent given, pt tolerated well. Resus. bag and back up trach at bedside. Vent and alarms checked and reset.
--- NOTE | 2017-04-07 19:20 | NUR ---
Bedside reporting with GEO Erwin Sleeping comfortably during rounds. No s/s of respiratory distress noted. On trach connected to vent with prescribed setting, tolerated well, saturating 100% at this time. HOB elevated. GTF continuos via Enteral pump, no gastric residual noted, intact and patent. F/C intact with minimal output clear tea colored. Flexiseal iintact, draining loose brown stool. Continue care as planned.
[2017-04-07 20:00] VITALS: BP 121/70
[2017-04-07] MEDS: CEFEPIME HCL 0.5 G in IV DEXTROSE 5% 50 ML IV SCH (21:03)
[2017-04-07] MEDS: INSULIN DETEMIR 300 UNIT/3 ML CARTRIDGE SQ SCH (21:11)
[2017-04-08] VITALS: BP 92/54
[2017-04-08] MEDS: BLOOD SUGAR DIAGNOSTIC 1 EACH STRIP VI SCH ×5 (00:12→23:30)
[2017-04-08] MEDS: INSULIN REGULAR, HUMAN 300 UNIT/3 ML VIAL SQ PRN ×4 (00:14→23:32)
[2017-04-08] MEDS: IPRATROPIUM BROMIDE 0.5 MG/2.5 ML NEBU NEB SCH ×4 (01:08→19:09)
[2017-04-08] MEDS: ALBUTEROL SULFATE 2.5 MG/3 ML NEBU NEB SCH ×4 (01:08→19:09)
[2017-04-08 04:00] VITALS: BP 111/69
[2017-04-08] MEDS: NORMAL SALINE FLUSH 10 ML DISP.SYRIN IV SCH ×3 (05:24→21:42)
[2017-04-08] MEDS: hydrALAZINE HCL 50 MG TABLET GT SCH ×3 (05:25→21:41)
[2017-04-08 06:34] LABS: BASOPHILS # (AUTO) 0.1 K/uL (0.0-8.0); BASOPHILS % (AUTO) 0.3 % (0.0-2.0); EOSINOPHILS # (AUTO) 0.5 K/uL (0.0-0.7); HEMOGLOBIN 9.1 G/DL (14.0-18.0); LYMPHOCYTES # (AUTO) 2.1 K/UL (0.8-4.8); LYMPHOCYTES % (AUTO) 12.3 % (20.5-51.5); MEAN CORPUSCULAR HEMOGLOBIN 26.6 UUG (27.0-31.0); MEAN CORPUSCULAR HGB CONC 33 g/dL (32.0-37.0); MEAN CORPUSCULAR VOLUME 81.9 FL (82.0-92.0); MONOCYTES # (AUTO) 1.9 K/UL (0.1-1.30); NEUTROPHILS # (AUTO) 12.5 K/UL (1.8-8.9); NEUTROPHILS % (AUTO) 73.4 % (38.5-71.5); PLATELET COUNT (AUTO) 425 K/UL (150-450); RED BLOOD CELL COUNT(AUTO) 3.43 MIL/UL (4.7-6.1); WHITE BLOOD COUNT (AUTO) 17.1 K/UL (4.0-11.2)
--- NOTE | 2017-04-08 06:39 | NUR ---
END OF SHIFT REPORT: VSS. Slept well. Tolerating vent setting well. No s/s of respiratory distress noted. Tolerating GT feeding. No s/s of aspiration noted. No significant event reported all night. All needs attended and met. Continue care as planned.
[2017-04-08 07:05] LABS: BILIRUBIN,TOTAL 0.4 mg/dL (0.2-1.0); CREATININE 5.4 mg/dL (0.6-1.3); MAGNESIUM 1.8 mg/dL (1.8-2.4); PHOSPHOROUS 6.3 mg/dL (2.5-4.9); POTASSIUM 4.5 mmol/L (3.5-5.1); TOTAL PROTEIN, SERUM 8.3 g/dL (6.4-8.2)
--- NOTE | 2017-04-08 07:30 | NUR ---
Bedside report given to GEO Nye
[2017-04-08 08:07] VITALS: BP 123/73
[2017-04-08] MEDS: PANTOPRAZOLE ORAL SUSPENSION 40 MG SUSPDR.PKT GT SCH (08:30)
[2017-04-08] MEDS: PROTEIN SUPPLEMENT (PROSTAT) 30 ML LIQUID GT SCH ×2 (08:30→16:06)
[2017-04-08] MEDS: LACTOBACILLUS RHAMNOSUS GG 1 EACH CAPSULE PO SCH ×2 (08:30→20:39)
[2017-04-08] MEDS: FERROUS SULFATE 300 MG/5 ML LIQUID UDC GT SCH ×2 (08:30→20:39)
[2017-04-08] MEDS: AMLODIPINE 5 MG TABLET PO SCH (08:34)
[2017-04-08] MEDS: Z GUARD REMEDY PASTE 57 GM TUBE TOP SCH ×2 (08:34→20:41)
[2017-04-08] MEDS: LABETALOL HCL 200 MG TABLET GT SCH ×2 (08:41→20:39)
[2017-04-08 08:43] LABS: EOSINOPHILS % (MANUAL) 2 % (0-8); LYMPHOCYTES % (MANUAL) 10 % (20-40); MONOCYTES % (MANUAL) 12 % (2-10); NEUTROPHILS % (MANUAL) 76 % (42-75)
[2017-04-08] MEDS ORDERED: DOSING PER PHARMACY-AMIKACIN IV XX PRN (11:15)
[2017-04-08 12:07] VITALS: BP 104/62
--- NOTE | 2017-04-08 13:09 | NUR ---
CLINICAL PHARMACY NOTE:AMIKACIN DOSING Request for amikacin dosing on 71 y/o male 5'9" 117lbs for UTI Dialysis patient Temp 100.2F BUN 104, Scr 5.4 WBC 17.1 urine culture Klebsiella pneumonia sensitive only to amikacin also Pseudomonas aeruginosa multiple sensitivity including Cefepime which patient is already on. Give amikacin 400mg ivpb x 1 today=7.5mg/kg. Will order trough level at the time of dialysis and re dose appropriately. Will continue to monitor.
--- NOTE | 2017-04-08 13:55 | NUR ---
1400 meds not administered Hemodialysis in progress.
[2017-04-08] MEDS: EPOETIN ALFA 10,000 UNITS/ML VIAL SQ PRN (15:35)
[2017-04-08] MEDS ORDERED: AMIKACIN 400 MG in IV DEXTROSE 5% 100 ML IV ONE (16:00)
[2017-04-08] MEDS: NOVASOURCE RENAL 1000 ML LIQUID GT PRN (16:06)
[2017-04-08 16:40] VITALS: BP 116/72
--- NOTE | 2017-04-08 19:09 | NUR ---
Pt received on Quinonez vent with settings of AC 12, VT 550, Peep +5, FiO2 30%. Pt is trached with a Shiley 8 DCT trach, which is secured and patent. No signs of respiratory distress noted at this time, pt tolerating vent settings well. In-line tx given per md order with 2.5mg Albuterol and 0.5mg Atrovent. Ambu-bag and back-up trach at bedside. Vent alarms functioning and audible. Will continue to monitor pt throughout shift.
--- NOTE | 2017-04-08 19:10 | NUR ---
Bedside report received from GEO Nye
--- NOTE | 2017-04-08 19:40 | NUR ---
Awake during intial rounds. Remain non verbal, no tracking, unable to follow command. Not in distress. Tolerating Vent setting well. Oral suctioning rendered, small amount of white thick secretion. Contact isolation maintained and observed. Continue care as planned.
[2017-04-08 20:00] VITALS: BP 123/75
[2017-04-08] MEDS: ACETAMINOPHEN 650 MG/20.3 ML LIQUID UDC GT PRN (20:39)
[2017-04-08] MEDS: CEFEPIME HCL 0.5 G in IV DEXTROSE 5% 50 ML IV SCH (20:40)
[2017-04-08] MEDS: INSULIN DETEMIR 300 UNIT/3 ML CARTRIDGE SQ SCH (20:45)
[2017-04-09] VITALS: BP 110/63
[2017-04-09] MEDS: IPRATROPIUM BROMIDE 0.5 MG/2.5 ML NEBU NEB SCH ×3 (00:52→13:42)
[2017-04-09] MEDS: ALBUTEROL SULFATE 2.5 MG/3 ML NEBU NEB SCH ×3 (00:52→13:42)
[2017-04-09 04:00] VITALS: BP 137/77
[2017-04-09] MEDS: IV NORMAL SALINE 250 ML IV PRN (05:09)
--- NOTE | 2017-04-09 06:05 | NUR ---
VSS. No respiratory distress reported. Tolerating vent setting well. All needs attended and met. No significant event reported all night. Continue care as planned.
[2017-04-09] MEDS: hydrALAZINE HCL 50 MG TABLET GT SCH ×2 (06:13→14:00)
[2017-04-09] MEDS: NORMAL SALINE FLUSH 10 ML DISP.SYRIN IV SCH ×2 (06:14→15:14)
[2017-04-09] MEDS: BLOOD SUGAR DIAGNOSTIC 1 EACH STRIP VI SCH ×2 (06:19→12:31)
--- NOTE | 2017-04-09 07:03 | NUR ---
Bedside reporting with GEO Ellis
[2017-04-09 07:19] VITALS: BP 128/65
--- NOTE | 2017-04-09 07:30 | NUR ---
RECIEVED PT LYING IN BED WITH HOB UP AT 35DEGREES. OPENS EYES BUT DOES NOT FOLLOW ANY COMMANDS. HR SR NO ECTOPY. MIDLINE ON THE RIGHT UPPER ARM INTACT, NS AT TKO RATE RUNNING. TEMP 98.7F. TRACHE #8 CLEAN AND INTACT. VENT SETTING IS AC-12, VT-550, PEEP-5, FIO2-30%. O2SAT IS 100%. SUCTIONED MINIMAL WHITISH SECRETION. NO APPARENT RESPIRATORY DISTRESS NOTED.
[2017-04-09] MEDS: FERROUS SULFATE 300 MG/5 ML LIQUID UDC GT SCH (08:42)
[2017-04-09] MEDS: LACTOBACILLUS RHAMNOSUS GG 1 EACH CAPSULE PO SCH (08:42)
[2017-04-09] MEDS: PANTOPRAZOLE ORAL SUSPENSION 40 MG SUSPDR.PKT GT SCH (08:43)
[2017-04-09] MEDS: AMLODIPINE 5 MG TABLET PO SCH (08:43)
[2017-04-09] MEDS: LABETALOL HCL 200 MG TABLET GT SCH (08:43)
[2017-04-09] MEDS: Z GUARD REMEDY PASTE 57 GM TUBE TOP SCH (08:44)
[2017-04-09] MEDS ORDERED: AMLO5TAB2 PO (08:54)
[2017-04-09] MEDS ORDERED: LACT1CAP57 PO (08:54)
[2017-04-09] MEDS ORDERED: AMIK250V7 IM/IV (08:54)
[2017-04-09] MEDS ORDERED: CEFE1FRO IV (08:54)
[2017-04-09] MEDS ORDERED: ALBU2.5V7 NEB (08:54)
[2017-04-09] MEDS ORDERED: PANT40SU2 GT (08:54)
[2017-04-09] MEDS: PROTEIN SUPPLEMENT (PROSTAT) 30 ML LIQUID GT SCH (09:00)
--- NOTE | 2017-04-09 09:00 | NUR ---
GTUBE INTACT. NOVASOURCE RENAL INFUSING WELL AT 45ML/HR. NO RESIDUALS NOTED. FLEXISEAL PRESENT AND DRAINING LIQUID BROWN STOOLS MODERATE AMOUNT. WOUND DRESSING INTACT ON THE COCCYX AREA.
--- NOTE | 2017-04-09 10:00 | NUR ---
SEEN BY DR TONG WITH ORDERS FOR DISCHARGE BACK [facility] TRA[facility] DRIVER TEAMSTER AWARE.
--- NOTE | 2017-04-09 10:45 | NUR ---
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 Thus, no dose of amikacin shall be given today. Will order next level pre-HD per HD protocol and dose as appropriate. Will continue to monitor and follow daily
[2017-04-09 11:03] VITALS: BP 106/59
--- NOTE | 2017-04-09 11:31 | NUR ---
RESTING COMFORTABLY, NO SIGNS OF PAIN OR DISTRESS, CONTINUE CURRENT VENT SETTINGS ORDERED. SR ON MONITOR
[2017-04-09] MEDS: INSULIN REGULAR, HUMAN 300 UNIT/3 ML VIAL SQ PRN (12:33)
[2017-04-09 15:45] VITALS: BP 112/64
--- NOTE | 2017-04-09 16:40 | NUR ---
DISCHARGED TO [facility] WITH RT ON BOARD. REPORT GIVEN TO ALLEN GUARDADO AT THE FACILITY
== END 2017-04-09 16:30 | DRG 720 ==
LOC: ER 21:45 → CCU 03-21 00:07 → TELE-TD 04-03 18:21
PROVIDERS: ADMIT Internal Medicine; ATTEND Internal Medicine
PROC: 30233N1 Transfusion of Nonautologous Red Blood Cells into Peripheral Vein, Percutaneous Approach (ICD-10-PCS; principal; 2017-03-21)
PROC: 5A1955Z Respiratory Ventilation, Greater than 96 Consecutive Hours (ICD-10-PCS; principal; 2017-03-21)
PROC: 05H533Z Insertion of Infusion Device into Right Subclavian Vein, Percutaneous Approach (ICD-10-PCS; 2017-03-22)
PROC: 0DJD8ZZ Inspection of Lower Intestinal Tract, Via Natural or Artificial Opening Endoscopic (ICD-10-PCS; 2017-03-27)
PROC: 5A1D60Z (ICD-10-PCS; 2017-03-27)
PROC: 0DJ08ZZ Inspection of Upper Intestinal Tract, Via Natural or Artificial Opening Endoscopic (ICD-10-PCS; 2017-03-27)
PROC: 0JB70ZZ Excision of Back Subcutaneous Tissue and Fascia, Open Approach (ICD-10-PCS; 2017-03-31)
DX: A41.9 Sepsis, unspecified organism (principal); E43 Unspecified severe protein-calorie malnutrition; G92 Toxic encephalopathy; R65.21 Severe sepsis with septic shock; G93.1 Anoxic brain damage, not elsewhere classified; I13.2 Hypertensive heart and chronic kidney disease with heart failure and with stage 5 chronic kidney disease, or end stage renal disease; L89.154 Pressure ulcer of sacral region, stage 4; D68.9 Coagulation defect, unspecified; J96.10 Chronic respiratory failure, unspecified whether with hypoxia or hypercapnia; Z99.11 Dependence on respirator [ventilator] status; N18.6 End stage renal disease; L89.159 Pressure ulcer of sacral region, unspecified stage; D62 Acute posthemorrhagic anemia; E11.9 Type 2 diabetes mellitus without complications; E11.22 Type 2 diabetes mellitus with diabetic chronic kidney disease; E11.69 Type 2 diabetes mellitus with other specified complication; N40.0 Benign prostatic hyperplasia without lower urinary tract symptoms; K80.20 Calculus of gallbladder without cholecystitis without obstruction; R13.10 Dysphagia, unspecified; Z99.2 Dependence on renal dialysis; Z93.1 Gastrostomy status; Z93.0 Tracheostomy status; B19.20 Unspecified viral hepatitis C without hepatic coma; D69.6 Thrombocytopenia, unspecified; D75.89 Other specified diseases of blood and blood-forming organs; I50.9 Heart failure, unspecified; I70.0 Atherosclerosis of aorta; J98.11 Atelectasis; K57.90 Diverticulosis of intestine, part unspecified, without perforation or abscess without bleeding; K64.9 Unspecified hemorrhoids; M47.814 Spondylosis without myelopathy or radiculopathy, thoracic region; M43.16 Spondylolisthesis, lumbar region; M48.06 Spinal stenosis, lumbar region; N28.1 Cyst of kidney, acquired; Z79.4 Long term (current) use of insulin; Z79.82 Long term (current) use of aspirin; Z87.891 Personal history of nicotine dependence; M25.452 Effusion, left hip; M25.451 Effusion, right hip; C22.0 Liver cell carcinoma; N39.0 Urinary tract infection, site not specified; B96.1 Klebsiella pneumoniae [K. pneumoniae] as the cause of diseases classified elsewhere; B96.5 Pseudomonas (aeruginosa) (mallei) (pseudomallei) as the cause of diseases classified elsewhere
CPT/HCPCS: 36415; 36569; 36600; 43235; 51702; 70030-TC; 71010; 71250; 74160; 74170; 82105; 82378; 82746; 82784; 83550; 83605; 83735; 84100; 84155; 84165; 84443; 85025; 85610; 85730; 86301; 86334; 86706; 86803; 86850; 86870; 86880; 86900; 86901; 86920; 87040; 87070; 87077; 87086; 87340; 87400; 87521; 87806; 90937; 93005; 93307; 94002; 94003; 94640; 94762; A4217; A4663; C9113; J0278; J0692; J0696; J0885; J1580; J1815; J2185; J3370; J3475; J3490; J3590; J7030; J7040; J7042; J7050; J7060; P9016-BL; P9021; P9047; Q9967